=== PATIENT | female | born 1980 | race Caucasian/White ===

== ENCOUNTER 2019-09-07 07:18 | Outpatient (CLI) | payer OTHER, SELFPAY ==
[2019-09-07 07:51] LABS: Alanine Aminotransferase 38 U/L (4-35); Albumin Level 4.3 g/dL (3.5-5.1); Alkaline Phosphatase 87 U/L (38-126); Aspartate Amino Transferase 30 U/L (14-36); Bilirubin,Total 0.7 mg/dL (0.2-1.3); Blood Urea Nitrogen 15 mg/dL (7-17); Calcium 9.1 mg/dL (8.4-10.2); Carbon Dioxide 26 mmol/L (22-30); Chloride 104 mmol/L (98-107); Cholesterol 202 mg/dL (0-200); Estimated Glomerular Filt Rate > 60; Glucose 116 mg/dL (65-105); HDL Direct 54 mg/dL; Potassium 4.6 mmol/L (3.4-5.0); Sodium 135 mmol/L (137-145); Triglycerides 157 mg/dL (<150)
[2019-09-07 07:54] LABS: Hemoglobin A1C 6.2 % (<5.7)
[2019-09-07 08:02] LABS: LDL Cholesterol Direct 102 mg/dL
[2019-09-07 08:15] LABS: Basophils Absolute Auto 0.1 K/mm3 (0.0-0.1); Basophils Percent Auto 0.9 % (0.2-1.2); Eosinophils Absolute Auto 0.3 K/mm3 (0-0.3); Eosinophils Percent Auto 3.9 % (0-4.4); Hematocrit 44.1 % (37.0-47.0); Hemoglobin 14.7 g/dL (12.0-15.0); Immature Granulocyte Absolute 0.02 K/mm3 (0.00-0.031); Immature Granulocyte Percent A 0.2 % (0-0.5); Lymphocytes Absolute Auto 3.06 K/mm3 (0.9-3.2); Lymphocytes Percent Auto 35.3 % (18.3-44.2); Mean Corpuscular HGB Conc 33.3 g/dl (32-36); Mean Corpuscular Hemoglobin 27.8 pg (26-34); Mean Corpuscular Volume 83.5 fl (80-100); Mean Platelet Volume 9.3 fl (7.4-10.4); Monocytes Absolute Auto 0.7 K/mm3 (0.1-0.6); Monocytes Percent Auto 8.4 % (2.6-8.5); Neutrophils Absolute Auto 4.4 K/mm3 (1.3-6.7); Neutrophils Percent Auto 51.3 % (45.5-73.1); Platelet Count Result 340 k/mm3 (150-375); Red Blood Count 5.28 M/mm3 (4.2-5.4); White Blood Count 8.7 K/mm3 (4.5-10.0)
[2019-09-07 08:29] LABS: Add Urine Microscopic? NO; Appearance Urine Clear (Clear); Bilirubin Urine Negative (Negative); Blood Urine Negative (Negative); Color Urine Yellow (Yellow); Glucose Urine UA Negative (Negative); Ketones Urine Negative (Negative); Leukocyte Esterase Ur Negative LEU/UL (Negative); Nitrate Urine Negative (Negative); Protein Urine Negative (Negative); Specific Grav Ur 1.016 (1.001-1.035); Urobilinogen Urine Negative mg/dL (<2.0)
[2019-09-07 08:42] LABS: Free T4 Free Thyroxine 1.25 ng/mL (0.78-2.19)
== END 2019-09-07 07:19 | disposition home or self-care (01) ==
PROVIDERS: PCP Physician Assistant; Visit Provider Physician Assistant
DX: Z00.01 Encounter for general adult medical examination with abnormal findings (principal); Z13.6 Encounter for screening for cardiovascular disorders; Z13.1 Encounter for screening for diabetes mellitus
CPT/HCPCS: 36415; 80053; 80061; 81003; 83036; 84439; 84443; 85025

== ENCOUNTER 2020-02-10 16:38 | Emergency (ER) | payer OTHER, SELFPAY ==
[2020-02-10] VITALS (27 sets, daily range): BP systolic 120–147; BP diastolic 72–93; PULSE 86–97; RESP 16; TEMP 36.1–36.6; O2SAT 92–100
--- NOTE | ~2020-02-10 | XR_ITS ---
XR chest 1V portable 02/10/2020 19:04 Indication: Covid. Dyspnea. Shortness of breath. Procedure: AP portable chest Comparison: 11/05/2018 Findings: Elevated right diaphragm. There are right perihilar infiltrates. No pleural effusion or pne umothorax. No acute osseous abnormality. Impression: 1: Right perihilar infiltrates, compatible with pneumonia. Reviewed, dictated and finalized at location A. TECHNICIAN Impression: 1: Right perihilar infiltrates, compatible with pneumonia.
--- NOTE | 2020-02-10 16:42 | ECG_ITS ---
Measurements Intervals [place] Rate: 92 P: 1 WV: 169 QRS: 6 QRSD: 96 T: -1 QT: 355 QTc: 441 Interpretive Statements SINUS RHYTHM DELAYED PRECORDIAL R/S TRANSITION VOLTAGE CRITERIA FOR LVH BORDERLINE T WAVE ABNORMALITY- INFERIOR LEADS BASELINE ARTIFACT- I, III, AVL BORDERLINE ECG Electronically Signed On 02-10-2020 18:26:52 [employer] by Maico Hull D.O.
[2020-02-10 17:16] LABS: Basophils Percent Auto 0.4 % (0.2-1.2); Eosinophils Percent Auto 0.6 % (0-4.4); Hematocrit 43.7 % (37.0-47.0); Hemoglobin 14.6 g/dL (12.0-15.0); Immature Granulocyte Absolute 0.02 K/mm3 (0.00-0.031); Immature Granulocyte Percent A 0.4 % (0-0.5); Lymphocytes Absolute Auto 2.31 K/mm3 (0.9-3.2); Lymphocytes Percent Auto 49.9 % (18.3-44.2); Mean Corpuscular HGB Conc 33.4 g/dl (32-36); Mean Corpuscular Hemoglobin 26.9 pg (26-34); Mean Corpuscular Volume 80.5 fl (80-100); Mean Platelet Volume 9.2 fl (7.4-10.4); Monocytes Absolute Auto 0.7 K/mm3 (0.1-0.6); Monocytes Percent Auto 14.3 % (2.6-8.5); Neutrophils Absolute Auto 1.6 K/mm3 (1.3-6.7); Neutrophils Percent Auto 34.4 % (45.5-73.1); Platelet Count Result 256 k/mm3 (150-375); Red Blood Count 5.43 M/mm3 (4.2-5.4); Red Cell Distribution Width 13.6 % (11.5-14.5); White Blood Count 4.6 K/mm3 (4.5-10.0)
[2020-02-10 17:25] LABS: Add Urine Microscopic? YES; Appearance Urine Clear (Clear); Bacteria Urine 1+ /hpf; Bilirubin Urine Negative (Negative); Blood Urine Negative (Negative); Color Urine Yellow (Yellow); Glucose Urine UA Negative (Negative); Ketones Urine Negative (Negative); Leukocyte Esterase Ur 1+ LEU/UL (Negative); Mucus Urine Few /lpf; Nitrate Urine Negative (Negative); Protein Urine 1+ mg/dL (Negative); RBC Urine 0-2 /hpf (0-2); Squamous Epithelial Cell Urine Moderate /hpf (Few)
[2020-02-10 17:33] LABS: Alanine Aminotransferase 27 U/L (4-35); Albumin Level 3.9 g/dL (3.5-5.1); Alkaline Phosphatase 70 U/L (38-126); Anion Gap 8 mmol/L (8-16); Aspartate Amino Transferase 31 U/L (14-36); Bilirubin,Total 0.8 mg/dL (0.2-1.3); Blood Urea Nitrogen 9 mg/dL (7-17); Calcium 8.6 mg/dL (8.4-10.2); Carbon Dioxide 30 mmol/L (22-30); Chloride 101 mmol/L (98-107); Estimated CRCL calculation 125 ml/min; Estimated Glomerular Filt Rate > 60; Glucose 112 mg/dL (65-105); Lipase 75 U/L (23-300); Potassium 3.7 mmol/L (3.4-5.0); Sodium 139 mmol/L (137-145)
--- NOTE | 2020-02-10 18:10 | ED.NAVMDI ---
HPI - Nausea/Vomiting/Diarrhea General Chief complaint: Nausea/Vomiting/Diarrhea Stated complaint: multiple complaints Time Seen by Provider: 02/10/20 18:10 Source: patient Mode of arrival: ambulatory Limitations: no limitations History of Present Illness HPI Narrative: Patient is a 39-year-old female with a history of hypertension, recent Covid 19 diagnosis 01/31, who presents to the emergency department for evaluation of 3 days of inability to tolerate oral intake and recurrent nausea and diarrhea. Patient reports she has had decreased oral intake due to persistent nausea. She is not taking any antiemetic. Patient states today she was unable to tolerate her antihypertensive medications due to the nausea. She denies chest pain or current shortness of breath. She reports she has a fever blister on her lip. She denies any abdominal pain. She reports intermittent, watery diarrhea without blood or mucus. She reports intermittent fever and myalgias. She denies dysuria or hematuria. Patient has not been taking any antiemetic. 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 Related Data Home Medications Medication Instructions Recorded Confirmed aspirin [Adult Low Dose Aspirin] 81 mg PO DAILY 01/27/19 02/09/19 colchicine 0.6 mg PO DAILY 01/27/19 02/09/19 losartan 100 mg PO DAILY 01/27/19 02/09/19 metoprolol tartrate 25 mg PO DAILY 01/27/19 02/09/19 Allergies Allergy/AdvReac Type Severity Reaction Status Date / Time No Known Allergies Allergy Unverified 05/17/18 22:50 Review of Systems Review of Systems: Narrative: CONSTITUTIONAL: Reports intermittent fever and chills EYES: Denies visual changes, redness, or discharge. ENT: Denies rhinorrhea, congestion, sore throat, or otalgia. CARDIOVASCULAR: Denies chest pain, palpitations, or edema. RESPIRATORY: Denies cough or dyspnea. GASTROINTESTINAL: Denies abdominal pain, reports nausea, vomiting and diarrhea GENITOURINARY: Denies dysuria or hematuria. SKIN: Denies rash or itching. MUSCULOSKELETAL: Denies back pain, joint pain, reports myalgias NEUROLOGIC: Denies headache, numbness, or weakness. [facility] Past Medical History Medical History (Updated 02/10/20 @ 21:33 by Marielos Espana MD) HLD (hyperlipidemia) HTN (hypertension) Overactive bladder Surgical History Surgical History H/O tubal ligation Hx of cholecystectomy Family History Family History Grandparent Family history of migraine headaches Hypertension Family history of malignant neoplasm of cervix Father Patient's father is in good health Sibling Patient's sister is in good health Social History Social History Smoking status: Never smoker Alcohol intake: current Exam Narrative: Exam Narrative: GENERAL: Awake, alert, conversant HEAD: Normocephalic, atraumatic. EYES: PERRLA and EOMI. ENT: Nares clear, no rhinorrhea or epistaxis. Mucous membranes moist. Fever blister lower lip. NECK: Supple. CHEST: No respiratory distress, breathing even and non labored HEART: Regular rate, sinus rhythm ABDOMEN:Non distended, non tender EXTREMITIES: Normal range of motion. No edema. SKIN: Warm, dry, no rash. NEURO:No focal deficits. Alert and oriented x3 Course Vital Signs Vital signs: Vital Signs Temperature 36.1 C L 02/10/20 16:57 Pulse Rate 92 02/10/20 16:57 Respiratory Rate 16 02/10/20 16:57 Blood Pressure 147/88 H 02/10/20 16:57 Pulse Oximetry 97 02/10/20 16:57 Temperature 36.1 C L 02/10/20 16:57 Pulse Rate 97 02/10/20 19:15 Respiratory Rate 16 02/10/20 16:57 Blood Pressure 124/83 02/10/20 21:17 Pulse Oximetry 96 02/10/20 21:17 MDM - Nausea/Vomiting/Diarrhea MDM Narrative Medical decision making narrative: Patient presented for evaluation of recurre
[2020-02-10] MEDS: FAMOTIDINE 20 MG/2 ML VIAL IV PUSH (19:02)
[2020-02-10] MEDS: METOCLOPRAMIDE HCL INJ 10 MG/2 ML VIAL IV PUSH (19:02)
[2020-02-10] MEDS: SODIUM CHLORIDE 0.9% IV 1,000 ML 999 ML IV CONT (19:02)
--- NOTE | 2020-02-10 20:39 | PC.NURSE ---
PO challenge ordered by MD> patient given sprite. IVF continue.
--- NOTE | 2020-02-10 21:30 | PC.NURSE ---
IVF completed. patient ready for discharge. will discuss with provider.
== END 2020-02-10 21:45 | disposition home or self-care (01) ==
PROVIDERS: Emergency Medicine; Emergency Provider Emergency Medicine; PCP Physician Assistant
DX: U07.1 COVID-19 (principal); J12.89 Other viral pneumonia; E86.0 Dehydration; I10 Essential (primary) hypertension; E78.5 Hyperlipidemia, unspecified; N32.81 Overactive bladder; R94.31 Abnormal electrocardiogram [ECG] [EKG]
CPT/HCPCS: 36415; 71045; 80053; 81001; 81025; 83690; 85025; 87086; 93005; 96365; 96366; 96375; 99284; J2765; J3411; J3475; J7030; J7121

== ENCOUNTER 2020-03-07 07:04 | Outpatient (CLI) | payer OTHER, SELFPAY ==
[2020-03-07 07:33] LABS: Anion Gap 4 mmol/L (8-16); Blood Urea Nitrogen 11 mg/dL (7-17); Calcium 8.8 mg/dL (8.4-10.2); Carbon Dioxide 27 mmol/L (22-30); Chloride 106 mmol/L (98-107); Estimated Glomerular Filt Rate > 60; Glucose 111 mg/dL (65-105); Potassium 3.8 mmol/L (3.4-5.0); Sodium 137 mmol/L (137-145)
[2020-03-07 08:06] LABS: Hemoglobin A1C 5.7 % (<5.7)
== END 2020-03-07 07:05 | disposition home or self-care (01) ==
LOC: ANHLAB 07:06
PROVIDERS: PCP Physician Assistant; Visit Provider Physician Assistant
DX: R73.03 Prediabetes (principal)
CPT/HCPCS: 36415; 80048; 83036

== ENCOUNTER 2020-09-09 07:07 | Outpatient (CLI) | payer OTHER, SELFPAY ==
[2020-09-09 07:40] LABS: Basophils Absolute Auto 0.1 K/mm3 (0.0-0.1); Basophils Percent Auto 0.9 % (0.2-1.2); Eosinophils Absolute Auto 0.3 K/mm3 (0-0.3); Hemoglobin 13.8 g/dL (12.0-15.0); Immature Granulocyte Absolute 0.04 K/mm3 (0.00-0.031); Immature Granulocyte Percent A 0.4 % (0-0.5); Lymphocytes Absolute Auto 3.42 K/mm3 (0.9-3.2); Lymphocytes Percent Auto 37.5 % (18.3-44.2); Mean Corpuscular HGB Conc 32.9 g/dl (32-36); Mean Corpuscular Hemoglobin 27.4 pg (26-34); Mean Corpuscular Volume 83.5 fl (80-100); Mean Platelet Volume 8.8 fl (7.4-10.4); Monocytes Absolute Auto 0.7 K/mm3 (0.1-0.6); Monocytes Percent Auto 7.5 % (2.6-8.5); Neutrophils Absolute Auto 4.6 K/mm3 (1.3-6.7); Neutrophils Percent Auto 50.7 % (45.5-73.1); Platelet Count Result 366 k/mm3 (150-375); Red Blood Count 5.03 M/mm3 (4.2-5.4); Red Cell Distribution Width 13.2 % (11.5-14.5); White Blood Count 9.1 K/mm3 (4.5-10.0)
[2020-09-09 07:55] LABS: Alanine Aminotransferase 23 U/L (4-35); Albumin Level 4.1 g/dL (3.5-5.1); Alkaline Phosphatase 89 U/L (38-126); Anion Gap 7 mmol/L (8-16); Aspartate Amino Transferase 23 U/L (14-36); Bilirubin,Total 0.5 mg/dL (0.2-1.3); Blood Urea Nitrogen 12 mg/dL (7-17); Calcium 8.9 mg/dL (8.4-10.2); Carbon Dioxide 25 mmol/L (22-30); Chloride 107 mmol/L (98-107); Cholesterol 185 mg/dL (0-200); Estimated Glomerular Filt Rate > 60; Glucose 109 mg/dL (65-110); HDL Direct 64 mg/dL; Potassium 4.2 mmol/L (3.4-5.0); Sodium 139 mmol/L (137-145); Triglycerides 97 mg/dL (<150)
[2020-09-09 08:05] LABS: LDL Cholesterol Direct 85 mg/dL
[2020-09-09 08:05] LABS: Add Urine Microscopic? NO; Appearance Urine Clear (Clear); Bilirubin Urine Negative (Negative); Blood Urine Negative (Negative); Color Urine Yellow (Yellow); Glucose Urine UA Negative (Negative); Ketones Urine Negative (Negative); Leukocyte Esterase Ur Negative LEU/UL (Negative); Nitrate Urine Negative (Negative); Protein Urine Negative (Negative); Specific Grav Ur 1.017 (1.001-1.035); Urobilinogen Urine Negative mg/dL (<2.0)
[2020-09-09 08:31] LABS: Free T4 Free Thyroxine 1.24 ng/mL (0.78-2.19)
[2020-09-09 10:03] LABS: Hemoglobin A1C 5.7 % (<5.7)
== END 2020-09-09 07:08 | disposition home or self-care (01) ==
PROVIDERS: PCP Physician Assistant; Visit Provider Physician Assistant
DX: R73.03 Prediabetes (principal); Z00.01 Encounter for general adult medical examination with abnormal findings; Z13.6 Encounter for screening for cardiovascular disorders
CPT/HCPCS: 36415; 80053; 80061; 81003; 83036; 84439; 84443; 85025

== ENCOUNTER 2021-06-03 07:03 | Outpatient (CLI) | payer OTHER, SELFPAY ==
[2021-06-03 07:44] LABS: Anion Gap 5 mmol/L (8-16); Blood Urea Nitrogen 13 mg/dL (7-17); Calcium 8.7 mg/dL (8.4-10.2); Carbon Dioxide 26 mmol/L (22-30); Chloride 105 mmol/L (98-107); Estimated Glomerular Filt Rate > 60; Glucose 119 mg/dL (65-110); Hemoglobin A1C 5.6 % (<5.7); Potassium 4.1 mmol/L (3.4-5.0); Sodium 136 mmol/L (137-145)
== END 2021-06-03 07:04 | disposition home or self-care (01) ==
LOC: ANHLAB 07:06
PROVIDERS: PCP Physician Assistant; Visit Provider Physician Assistant
DX: R73.03 Prediabetes (principal)
CPT/HCPCS: 36415; 80048; 83036

== ENCOUNTER 2021-12-18 07:18 | Outpatient (CLI) | payer OTHER, SELFPAY ==
[2021-12-18 07:44] LABS: Appearance Urine Clear (Clear); Bilirubin Urine Negative (Negative); Blood Urine Negative (Negative); Color Urine Yellow (Yellow); Glucose Urine UA Negative (Negative); Ketones Urine Negative (Negative); Leukocyte Esterase Ur Negative LEU/UL (Negative); Nitrate Urine Negative (Negative); Protein Urine Negative (Negative); Specific Grav Ur 1.025 (1.001-1.035); Urobilinogen Urine 0.2 mg/dL (<2.0); pH Urine 6.5 (5.0-9.0)
[2021-12-18 07:47] LABS: Basophils Absolute Auto 0.1 K/mm3 (0.0-0.1); Eosinophils Absolute Auto 0.3 K/mm3 (0-0.3); Eosinophils Percent Auto 3.7 % (0-4.4); Hematocrit 42.2 % (37.0-47.0); Hemoglobin 13.8 g/dL (12.0-15.0); Immature Granulocyte Absolute 0.04 K/mm3 (0.00-0.031); Immature Granulocyte Percent A 0.5 % (0-0.5); Lymphocytes Absolute Auto 3.16 K/mm3 (0.9-3.2); Lymphocytes Percent Auto 36.3 % (18.3-44.2); Mean Corpuscular HGB Conc 32.7 g/dl (32-36); Mean Corpuscular Hemoglobin 27.9 pg (26-34); Mean Corpuscular Volume 85.4 fl (80-100); Mean Platelet Volume 8.9 fl (7.4-10.4); Monocytes Absolute Auto 0.7 K/mm3 (0.1-0.6); Monocytes Percent Auto 8.2 % (2.6-8.5); Neutrophils Absolute Auto 4.4 K/mm3 (1.3-6.7); Neutrophils Percent Auto 50.3 % (45.5-73.1); Platelet Count Result 372 k/mm3 (150-375); Red Blood Count 4.94 M/mm3 (4.2-5.4); Red Cell Distribution Width 12.9 % (11.5-14.5); White Blood Count 8.7 K/mm3 (4.5-10.0)
[2021-12-18 08:09] LABS: Mucus Urine Rare /lpf; RBC Urine 0-2 /hpf (0-2); Squamous Epithelial Cell Urine Moderate /hpf (Few); WBC Urine 0-3 /hpf
[2021-12-18 08:12] LABS: Alanine Aminotransferase 40 U/L (6-35); Albumin Level 4.4 g/dL (3.5-5.1); Alkaline Phosphatase 83 U/L (38-126); Anion Gap 9 mmol/L (8-16); Aspartate Amino Transferase 31 U/L (14-36); Bilirubin,Total 0.6 mg/dL (0.2-1.3); Blood Urea Nitrogen 16 mg/dL (7-17); Calcium 8.8 mg/dL (8.4-10.2); Carbon Dioxide 25 mmol/L (22-30); Chloride 103 mmol/L (98-107); Cholesterol 173 mg/dL (0-200); Estimated Glomerular Filt Rate > 60; Glucose 109 mg/dL (65-110); HDL Direct 47 mg/dL; Potassium 4.2 mmol/L (3.4-5.0); Sodium 137 mmol/L (137-145); Triglycerides 176 mg/dL (<150)
[2021-12-18 08:20] LABS: Add Urine Microscopic? YES
[2021-12-18 08:24] LABS: LDL Cholesterol Direct 82 mg/dL
[2021-12-18 09:16] LABS: Hemoglobin A1C 6.1 % (<5.7)
== END 2021-12-18 07:19 | disposition home or self-care (01) ==
LOC: ANHLAB 07:20
PROVIDERS: PCP Physician Assistant; Visit Provider Physician Assistant
DX: R73.03 Prediabetes (principal); Z79.899 Other long term (current) drug therapy; Z13.220 Encounter for screening for lipoid disorders
CPT/HCPCS: 36415; 80053; 80061; 81001; 83036; 84443; 85025

== ENCOUNTER 2022-06-23 06:46 | Outpatient (CLI) | payer OTHER, SELFPAY ==
[2022-06-23 07:16] LABS: Hemoglobin A1C 5.7 % (<5.7)
[2022-06-23 07:19] LABS: Alanine Aminotransferase 20 U/L (6-35); Alkaline Phosphatase 70 U/L (38-126); Anion Gap 2 mmol/L (8-16); Aspartate Amino Transferase 20 U/L (14-36); Bilirubin,Total 0.6 mg/dL (0.2-1.3); Blood Urea Nitrogen 13 mg/dL (7-17); Calcium 8.6 mg/dL (8.4-10.2); Carbon Dioxide 29 mmol/L (22-30); Chloride 105 mmol/L (98-107); Cholesterol 162 mg/dL (0-200); Estimated Glomerular Filt Rate > 60; Glucose 112 mg/dL (65-110); HDL Direct 58 mg/dL; Potassium 4.1 mmol/L (3.4-5.0); Sodium 136 mmol/L (137-145); Triglycerides 102 mg/dL (<150)
[2022-06-23 07:30] LABS: LDL Cholesterol Direct 72 mg/dL
== END 2022-06-23 06:47 | disposition home or self-care (01) ==
LOC: ANHLAB 06:48
PROVIDERS: PCP Physician Assistant; Visit Provider Physician Assistant
DX: R73.03 Prediabetes (principal); Z79.899 Other long term (current) drug therapy; Z13.220 Encounter for screening for lipoid disorders
CPT/HCPCS: 36415; 80053; 80061; 83036

== ENCOUNTER 2022-07-31 13:53 | Emergency (ER) | payer OTHER, SELFPAY ==
--- NOTE | ~2022-07-31 | CT_ITS ---
EXAMINATION: CT abdomen pelvis wo con DATE: 07/31/2022 17:38 INDICATION: Right flank pain TECHNIQUE: Computed tomography (CT) of the abdomen and pelvis was performed without intravenous contr ast. Automated exposure control and iterative reconstruction technique were employed. Exam dose: 151 3.59 mGy-cm total exam DLP. COMPARISON: 01/07/2011 CT abdomen pelvis FINDINGS: The lung bases are clear. Normal heart size. No pericardial or pleural effusion. Status post cholecystectomy. The liver, spleen, pancreas, and adrenal glands and kidneys are unremark able. No urinary tract calculus or hydroureteronephrosis. Normal caliber of the abdominal aorta. No intraperitoneal or retroperitoneal or pelvic mass lesion or adenopathy or ascites. The uterus, adnexal areas are unremarkable except for bilateral tubal ligation. The urinary bladder i s unremarkable. No bowel obstruction, bowel wall thickening, pneumatosis or intraperitoneal free air. Normal appendix . Small fat-containing umbilical hernia. No suspicious osteolytic or osteoblastic lesions. IMPRESSION: No significant abnormality Status post cholecystectomy Reviewed, dictated and finalized at [facility]. Reviewed, dictated and finalized at location A.
[2022-07-31 14:03] VITALS: BP 165/97; PULSE 100; RESP 16; TEMP 36.2; O2SAT 100
[2022-07-31 14:29] LABS: Basophils Absolute Auto 0.1 K/mm3 (0.0-0.1); Basophils Percent Auto 0.7 % (0.2-1.2); Eosinophils Absolute Auto 0.2 K/mm3 (0-0.3); Eosinophils Percent Auto 1.2 % (0-4.4); Hematocrit 44.4 % (37.0-47.0); Hemoglobin 14.3 g/dL (12.0-15.0); Immature Granulocyte Absolute 0.05 K/mm3 (0.00-0.031); Immature Granulocyte Percent A 0.3 % (0-0.5); Lymphocytes Absolute Auto 4.28 K/mm3 (0.9-3.2); Lymphocytes Percent Auto 29.3 % (18.3-44.2); Mean Corpuscular HGB Conc 32.2 g/dl (32-36); Mean Corpuscular Hemoglobin 27.8 pg (26-34); Mean Corpuscular Volume 86.2 fl (80-100); Mean Platelet Volume 8.9 fl (7.4-10.4); Monocytes Absolute Auto 1.2 K/mm3 (0.1-0.6); Neutrophils Absolute Auto 8.8 K/mm3 (1.3-6.7); Neutrophils Percent Auto 60.5 % (45.5-73.1); Platelet Count Result 386 k/mm3 (150-375); Red Blood Count 5.15 M/mm3 (4.2-5.4); Red Cell Distribution Width 13.2 % (11.5-14.5); White Blood Count 14.6 K/mm3 (4.5-10.0)
[2022-07-31 14:39] LABS: Appearance Urine Cloudy (Clear); Bacteria Urine Rare /hpf; Bilirubin Urine Negative (Negative); Blood Urine Negative (Negative); Color Urine Yellow (Yellow); Glucose Urine UA Negative (Negative); Ketones Urine Trace mg/dL (Negative); Leukocyte Esterase Ur Trace LEU/UL (Negative); Nitrate Urine Negative (Negative); Non Pathogenic Casts 0-2; Protein Urine Negative (Negative); RBC Urine 0-2 /hpf (0-2); Specific Grav Ur 1.022 (1.001-1.035); Squamous Epithelial Cell Urine Moderate /hpf (Few)
[2022-07-31 14:40] LABS: Alanine Aminotransferase 22 U/L (6-35); Albumin Level 4.4 g/dL (3.5-5.1); Alkaline Phosphatase 91 U/L (38-126); Anion Gap 5 mmol/L (8-16); Aspartate Amino Transferase 21 U/L (14-36); Bilirubin,Total 0.4 mg/dL (0.2-1.3); Blood Urea Nitrogen 12 mg/dL (7-17); Calcium 8.9 mg/dL (8.4-10.2); Carbon Dioxide 32 mmol/L (22-30); Chloride 101 mmol/L (98-107); Estimated CRCL calculation 140 ml/min; Estimated Glomerular Filt Rate > 60; Glucose 139 mg/dL (65-110); Lipase 69 U/L (23-300); Potassium 3.7 mmol/L (3.4-5.0); Sodium 138 mmol/L (137-145)
[2022-07-31 14:42] LABS: Add Urine Microscopic? YES
--- NOTE | 2022-07-31 16:25 | ED.FEMALEGU ---
HPI - Female Genitourinary General Chief complaint: Urogenital-Female Stated complaint: back pain Time Seen by Provider: 07/31/22 16:16 Source: patient Mode of arrival: ambulatory Limitations: no limitations History of Present Illness HPI Narrative: 41 years old white female presents to the ED with dull aching pain at the right flank area over the last 2 days, constant. She denies aggravating or relieving factors, she denies fever, chills, nausea, vomiting, abdominal pain or radiation of pain. Patient denies having similar symptoms. Pain is 5 out of 10, constant. 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 Patient did not take any pain medication for the last 2 days. Related Data Home Medications Medication Instructions Recorded Confirmed aspirin 81 mg tablet,delayed 81 mg PO DAILY 01/27/19 02/09/19 release (Adult Low Dose Aspirin) colchicine 0.6 mg tablet 0.6 mg PO DAILY 01/27/19 02/09/19 losartan 100 mg tablet 100 mg PO DAILY 01/27/19 02/09/19 metoprolol tartrate 25 mg tablet 25 mg PO DAILY 01/27/19 02/09/19 Allergies Allergy/AdvReac Type Severity Reaction Status Date / Time No Known Allergies Allergy Verified 07/31/22 14:05 Review of Systems Review of Systems: All systems reviewed & are unremarkable except as noted in HPI and below PMFSH Past Medical History Medical History (Updated 07/31/22 @ 18:19 by Danielle Conway MD) HLD (hyperlipidemia) HTN (hypertension) Overactive bladder Surgical History Surgical History H/O tubal ligation Hx of cholecystectomy Family History Family History Grandparent Family history of migraine headaches Hypertension Family history of malignant neoplasm of cervix Father Patient's father is in good health Sibling Patient's sister is in good health Social History Social History Smoking status: Never smoker Alcohol intake: current Exam Narrative: General appearance: Well-developed, well-nourished Skin: Normal color Head: Normocephalic, nontraumatic Eyes: Clear conjunctiva ENT: Oropharynx normal, ears normal, nose normal Neck: Supple, nontender Chest and respiratory: Airway patent, no respiratory distress, no accessory muscle use Heart: Regular rate/rhythm Abdomen: Soft, nontender, no organomegaly, quiet bowel sounds Vascular: Normal peripheral pulses, normal capillary refill. Musculoskeletal: Normal range of motion, mild tenderness and they are right flank area, and the costophrenic area., No bruises, no swelling, no rash pain got worse with right upper extremity abduction. Neurologic: Alert and oriented ?3, MANAGER MOBILE is normal as tested, no gross motor deficit Course Vital Signs Vital signs: Vital Signs Temperature 36.2 C L 07/31/22 14:03 Pulse Rate 100 07/31/22 14:03 Respiratory Rate 16 07/31/22 14:03 Blood Pressure 165/97 H 07/31/22 14:03 Pulse Oximetry 100 07/31/22 14:03 Oxygen Delivery Room Air 07/31/22 14:03 Temperature 36.2 C L 07/31/22 14:03 Pulse Rate 100 07/31/22 14:03 Respiratory Rate 16 07/31/22 14:03 Blood Pressure 165/97 H 07/31/22 14:03 Pulse Oximetry 100 07/31/22 14:03 Oxygen Delivery Room Air 07/31/22 14:03 MDM - Female Genitourinary MDM Narrative Medical decision making narrative: Patient presents with right flank dull aching pain for the last 2 days, physical examination showed slight tenderness at the right costophrenic angle, differential diagnosis include musculoskeletal, pyelonephritis, ki
[2022-07-31 18:36] VITALS: BP 140/84; PULSE 86; RESP 16; O2SAT 99
== END 2022-07-31 18:37 | disposition home or self-care (01) ==
PROVIDERS: Emergency Provider Emergency Medicine; PCP Physician Assistant
DX: R10.9 Unspecified abdominal pain (principal); E78.5 Hyperlipidemia, unspecified; I10 Essential (primary) hypertension; N32.81 Overactive bladder; Z90.49 Acquired absence of other specified parts of digestive tract; Z79.82 Long term (current) use of aspirin
CPT/HCPCS: 36415; 74176; 80053; 81001; 81025; 83690; 85025; 87086; 99284

== ENCOUNTER 2023-01-07 07:39 | Outpatient (CLI) | payer OTHER, SELFPAY ==
[2023-01-07 08:50] LABS: Alanine Aminotransferase 22 U/L (6-35); Albumin Level 4.1 g/dL (3.5-5.1); Alkaline Phosphatase 74 U/L (38-126); Anion Gap 10 mmol/L (8-16); Aspartate Amino Transferase 21 U/L (14-36); Bilirubin,Total 0.6 mg/dL (0.2-1.3); Blood Urea Nitrogen 16 mg/dL (7-17); Calcium 8.9 mg/dL (8.4-10.2); Carbon Dioxide 25 mmol/L (22-30); Chloride 106 mmol/L (98-107); Cholesterol 186 mg/dL (0-200); Estimated Glomerular Filt Rate > 60; Glucose 114 mg/dL (65-110); HDL Direct 56 mg/dL; Potassium 4.4 mmol/L (3.4-5.0); Sodium 141 mmol/L (137-145); Triglycerides 80 mg/dL (<150)
[2023-01-07 09:01] LABS: LDL Cholesterol Direct 94 mg/dL
[2023-01-07 09:08] LABS: Basophils Absolute Auto 0.1 K/mm3 (0.0-0.1); Basophils Percent Auto 0.9 % (0.2-1.2); Eosinophils Absolute Auto 0.2 K/mm3 (0-0.3); Eosinophils Percent Auto 2.2 % (0-4.4); Hematocrit 42.7 % (37.0-47.0); Hemoglobin 13.4 g/dL (12.0-15.0); Immature Granulocyte Absolute 0.03 K/mm3 (0.00-0.031); Immature Granulocyte Percent A 0.4 % (0-0.5); Lymphocytes Absolute Auto 2.84 K/mm3 (0.9-3.2); Lymphocytes Percent Auto 35.2 % (18.3-44.2); Mean Corpuscular HGB Conc 31.4 g/dl (32-36); Mean Corpuscular Volume 86.1 fl (80-100); Mean Platelet Volume 9.3 fl (7.4-10.4); Monocytes Absolute Auto 0.6 K/mm3 (0.1-0.6); Monocytes Percent Auto 7.6 % (2.6-8.5); Neutrophils Absolute Auto 4.3 K/mm3 (1.3-6.7); Neutrophils Percent Auto 53.7 % (45.5-73.1); Platelet Count Result 345 k/mm3 (150-375); Red Blood Count 4.96 M/mm3 (4.2-5.4); White Blood Count 8.1 K/mm3 (4.5-10.0)
[2023-01-07 09:13] LABS: Hemoglobin A1C 5.6 % (<5.7)
== END 2023-01-07 07:40 | disposition home or self-care (01) ==
LOC: ANHLAB 07:41
PROVIDERS: PCP Physician Assistant; Visit Provider Physician Assistant
DX: R73.03 Prediabetes (principal); Z79.899 Other long term (current) drug therapy; Z13.220 Encounter for screening for lipoid disorders
CPT/HCPCS: 36415; 80053; 80061; 83036; 84443; 85025

== ENCOUNTER 2023-01-31 07:17 | Outpatient (CLI) | payer OTHER, SELFPAY ==
--- NOTE | ~2023-01-31 | MM_ITS ---
EXAMINATION: MM screening sarah BI w timothy HISTORY: Screening TECHNIQUE: Craniocaudal and mediolateral oblique 3-D tomosynthesis images were obtained and synthetic 2-D images were generated. CAD analysis was submitted and interpreted. COMPARISON: 04/24/2015 BREAST PARENCHYMAL COMPOSITION: The breasts are almost entirely fatty. FINDINGS: There is no evidence of suspicious mass, calcification, or architectural distortion to sugg est malignancy in either breast. There has been no suspicious interval change. IMPRESSION: 1. No mammographic evidence of malignancy. 2. Recommend routine screening mammography in one year. BI-RADS Category 1: Negative Reviewed, dictated and finalized at location A. UI DESIGNER
== END 2023-01-31 07:18 | disposition home or self-care (01) ==
PROVIDERS: PCP Physician Assistant; Visit Provider Obstetrics & Gynecology
DX: Z12.31 Encounter for screening mammogram for malignant neoplasm of breast (principal)
CPT/HCPCS: 77063; 77067

== ENCOUNTER 2023-08-21 08:16 | Emergency (ER) | payer OTHER, SELFPAY ==
[2023-08-21 08:42] VITALS: BP 160/89; PULSE 107; RESP 14; TEMP 37.4; O2SAT 96
--- NOTE | 2023-08-21 08:59 | ED.URI ---
HPI - URI/Sore Throat General Chief Complaint: Upper Respiratory Infection Stated Complaint: Sore Throat,Cough,Fever History of Present Illness HPI Narrative: 42-year-old female presented for complaint of sore throat, cough, and fever. Onset 5 days. Temp up to 100. OTC cough meds not helping. states her daughter had strep throat 2 weeks ago. She denies shortness of breath, wheezing, nausea, vomiting, diarrhea or lethargy. Related Data Home Medications Medication Instructions Recorded Confirmed aspirin 81 mg tablet,delayed 81 mg PO DAILY 01/27/19 08/21/23 release (Adult Low Dose Aspirin) losartan 100 mg tablet 100 mg PO DAILY 01/27/19 08/21/23 metoprolol tartrate 25 mg tablet 25 mg PO DAILY 01/27/19 08/21/23 Allergies Allergy/AdvReac Type Severity Reaction Status Date / Time No Known Allergies Allergy Verified 08/21/23 08:54 Review of Systems Review of Systems: CONSTITUTIONAL: Denies body aches reports fever EYES: Denies visual changes, redness, or discharge. ENT: Reports sore throat Denies rhinorrhea, congestion, or otalgia. CARDIOVASCULAR: Denies chest pain, palpitations, or edema. RESPIRATORY: reports cough Denies dyspnea. GASTROINTESTINAL: Denies abdominal pain, nausea, vomiting, or diarrhea. SKIN: Denies rash, itching, or wounds. MUSCULOSKELETAL: Denies back pain, joint pain, or myalgia. NEUROLOGIC: Denies headache PMFSH Past Medical History Medical History (Updated 08/21/23 @ 09:15 by Michelle Umana APRN) HLD (hyperlipidemia) HTN (hypertension) Overactive bladder Surgical History Surgical History H/O tubal ligation Hx of cholecystectomy Family History Family History Grandparent Family history of migraine headaches Hypertension Family history of malignant neoplasm of cervix Father Patient's father is in good health Sibling Patient's sister is in good health Social History Social History Smoking status: Never smoker Alcohol intake: current Exam Narrative: GENERAL: well-appearing, no acute distress. EYES: conjunctivae clear ENT: Mucous membranes moist. TM pearly lewis with normal light reflex bilaterally; no tragal tenderness. Oropharynx not erythematous without lesions. Tonsils not enlarged and without exudate. No drooling, no hoarseness, no trismus, uvula midline. No tripod positioning, hot potato voice, or soft palate swelling. NECK: Supple. No lymphadenopathy CHEST: Clear to auscultation, breath sounds equal. No respiratory distress, speaks in full sentences. HEART: Regular rate and rhythm. No murmur heard. SKIN: Warm, dry, no rash. NEURO: Alert and oriented x3. Course Course Emergency Course: Patient is aware of diagnosis, understands and agrees to treatment plan. Anticipatory guidance given. Patient agrees to follow-up as directed and is aware of reasons to seek care at the emergency department. Portions of this record may have been created with voice recognition software Level of Care: Express Care Visit Vital Signs Vital signs: Vital Signs Temperature 99.4 F 08/21/23 08:42 Pulse Rate 107 H 08/21/23 08:42 Respiratory Rate 14 08/21/23 08:42 Blood Pressure 160/89 H 08/21/23 08:42 Pulse Oximetry 96 08/21/23 08:42 Oxygen Delivery Room Air 08/21/23 08:42 Temperature 99.4 F 08/21/23 08:42 Pulse Rate 107 H 08/21/23 08:42 Respiratory Rate 14 08/21/23 08:42 Blood Pressure 160/89 H 08/21/23 08:42 Pulse Oximetry 96 08/21/23 08:42 Oxygen Delivery Room Air 08/21/23 08:42 MDM - URI/Sore Throat MDM Narrative Medical decision making narrative: negative flu, COVID, and strep result reviewed with pt. Advise supportive treatments. Patient is appropriate for outpatient treatment and follow-up. Differential Diagnosis Differential diagnosis:
[2023-08-21 10:25] LABS: EDINFLUASCREEN Negative; EDINFLUBSCREEN Negative; EDSTREPNEGPOS1 Presumptive Negative
== END 2023-08-21 09:20 | disposition home or self-care (01) ==
PROVIDERS: Emergency Provider Nurse Practitioner Family; PCP Physician Assistant
DX: J06.9 Acute upper respiratory infection, unspecified (principal); Z20.822 Contact with and (suspected) exposure to COVID-19; E78.5 Hyperlipidemia, unspecified; I10 Essential (primary) hypertension; Z79.82 Long term (current) use of aspirin
CPT/HCPCS: 87081; 87426; 87804; 87880; 99213; G0463

== ENCOUNTER 2023-08-22 09:44 | Outpatient (CLI) | payer OTHER, SELFPAY ==
[2023-08-22 11:05] LABS: Hemoglobin A1C 5.9 % (<5.7)
== END 2023-08-22 09:45 | disposition home or self-care (01) ==
LOC: ANHLAB 09:46
PROVIDERS: PCP Physician Assistant; Visit Provider Physician Assistant
DX: Z13.1 Encounter for screening for diabetes mellitus (principal)
CPT/HCPCS: 36415; 83036

== ENCOUNTER 2023-09-15 09:07 | Outpatient (CLI) | payer OTHER, SELFPAY ==
[2023-09-15 10:16] LABS: Basophils Absolute Auto 0.1 K/mm3 (0.0-0.1); Basophils Percent Auto 1.1 % (0.2-1.2); Eosinophils Absolute Auto 0.2 K/mm3 (0-0.3); Eosinophils Percent Auto 2.9 % (0-4.4); Hematocrit 42.8 % (37.0-47.0); Hemoglobin 13.8 g/dL (12.0-15.0); Immature Granulocyte Absolute 0.02 K/mm3 (0.00-0.031); Immature Granulocyte Percent A 0.2 % (0-0.5); Lymphocytes Percent Auto 35.4 % (18.3-44.2); Mean Corpuscular HGB Conc 32.2 g/dl (32-36); Mean Corpuscular Hemoglobin 28.1 pg (26-34); Mean Corpuscular Volume 87.2 fl (80-100); Mean Platelet Volume 9.2 fl (7.4-10.4); Monocytes Absolute Auto 0.7 K/mm3 (0.1-0.6); Monocytes Percent Auto 8.4 % (2.6-8.5); Neutrophils Absolute Auto 4.3 K/mm3 (1.3-6.7); Platelet Count Result 304 k/mm3 (150-375); Red Blood Count 4.91 M/mm3 (4.2-5.4); Red Cell Distribution Width 13.8 % (11.5-14.5); White Blood Count 8.2 K/mm3 (4.5-10.0)
[2023-09-15 10:33] LABS: Alanine Aminotransferase 28 U/L (6-35); Albumin Level 4.3 g/dL (3.5-5.1); Alkaline Phosphatase 76 U/L (38-126); Anion Gap 10 mmol/L (4-12); Aspartate Amino Transferase 24 U/L (14-36); Bilirubin,Total 0.6 mg/dL (0.2-1.3); Blood Urea Nitrogen 15 mg/dL (7-17); Calcium 9.1 mg/dL (8.4-10.2); Carbon Dioxide 27 mmol/L (22-30); Chloride 100 mmol/L (98-107); Estimated Glomerular Filt Rate > 60; Glucose 99 mg/dL (65-110); Potassium 3.9 mmol/L (3.4-5.0); Sodium 137 mmol/L (137-145)
[2023-09-15 11:00] LABS: Free T4 Free Thyroxine 1.33 ng/mL (0.78-2.19)
[2023-09-15 12:03] LABS: Folic Acid > 20.0 ng/mL (2.76->20)
[2023-09-19 14:19] LABS: Insulin Level Total 16.3 uIU/mL
== END 2023-09-15 09:08 | disposition home or self-care (01) ==
PROVIDERS: PCP Physician Assistant; Visit Provider Physician Assistant
DX: Z79.899 Other long term (current) drug therapy (principal); Z68.42 Body mass index [BMI] 45.0-49.9, adult
CPT/HCPCS: 36415; 80053; 82607; 82746; 83525; 84439; 84443; 85025

== ENCOUNTER 2024-01-06 07:39 | Outpatient (CLI) | payer OTHER, SELFPAY ==
[2024-01-06 08:24] LABS: Cholesterol 186 mg/dL (0-200); HDL Direct 55 mg/dL; Triglycerides 178 mg/dL (<150)
[2024-01-06 08:35] LABS: LDL Cholesterol Direct 91 mg/dL
[2024-01-06 09:21] LABS: Hemoglobin A1C 6.1 % (<5.7)
== END 2024-01-06 07:40 | disposition home or self-care (01) ==
LOC: ANHLAB 07:41
PROVIDERS: PCP Physician Assistant; Visit Provider Physician Assistant
DX: Z13.220 Encounter for screening for lipoid disorders (principal); Z13.1 Encounter for screening for diabetes mellitus
CPT/HCPCS: 36415; 80061; 83036

== ENCOUNTER 2024-02-09 07:29 | Outpatient (CLI) | payer OTHER, SELFPAY ==
--- NOTE | ~2024-02-09 | MM_ITS ---
EXAMINATION: MM screening sarah BI w timothy HISTORY: Screening TECHNIQUE: Craniocaudal and mediolateral oblique 3-D tomosynthesis images were obtained and synthetic 2-D images were generated. CAD analysis was submitted and interpreted. COMPARISON: Comparison to multiple prior studies sequentially, with oldest reviewed study dated 05/2015. BREAST PARENCHYMAL COMPOSITION: Not dense: There are scattered areas of fibroglandular density. FINDINGS: There is no evidence of suspicious mass, calcification, or architectural distortion to sugg est malignancy in either breast. There has been no suspicious interval change. IMPRESSION: 1. No mammographic evidence of malignancy. 2. Recommend routine screening mammography in one year. BI-RADS Category 1: Negative Reviewed, dictated and finalized at location B. TENANCE SUPERVISOR 2ND SHIFT
== END 2024-02-09 07:30 | disposition home or self-care (01) ==
LOC: ANHIMG 07:31
PROVIDERS: PCP Physician Assistant; Visit Provider Obstetrics & Gynecology
DX: Z12.31 Encounter for screening mammogram for malignant neoplasm of breast (principal)
CPT/HCPCS: 77063; 77067

== ENCOUNTER 2024-08-03 07:04 | Outpatient (CLI) | payer OTHER, SELFPAY ==
--- OUTSIDE RECORDS SUMMARY | 2024-08-03 07:10 | XMS_ITS | Data Portability ---
Author Organization ROSSI MORRISDanni Moore Address [address] [facility] ROSSI Razo [address] Care Team Providers Care Interior Design Project Manager Name Role Phone XOCHILT RAMIREZ Primary Care Provider Unavailab le Assessment Encounter Date Assessment Date Assessment LastModified by Organization Details LastModified Time 08/22/2023 08/22/2023 Mammogram jan 2023, all clear. gyne dr. triplett. Up-to-date on Pap smear Eye exam and dental exam is up-to-date Not available 09/10/2023 22:13:56 02/27/2024 02/27/2024 Mammogram jan 2023, all clear. gyne dr. triplett. Up-to-date on Pap smear Eye exam and dental exam is up-to-date Not available 02/27/2024 10:43:21 Plan of Treatment Reminders Order Date Submit Date Provider Last Modified By Organization Details Last Modified Time Details Appointments ANY 15 2024 09:00A M NOE Reyna Not available Not available Not available Lab insulin, serum 2024 025 [facility], [address], [address], 07/05/2024 09:42:26 TSH + free T4, serum 2024 025 [facility], [address], [place], [address], 07/05/2024 09:42:27 HbA1c (hemoglob in A1c), blood 2024 025 [facility], [address] [place] [address], [id number], 07/05/2024 09:42:27 lipid panel, serum 2024 025 [facility], [address] [place] [address], [id number], 07/05/2024 09:42:27 CMP, serum or plasma 2024 025 [facility], [address] [place] [address], [id number], 07/05/2024 09:42:27 CBC w/ auto diff 2024 025 [facility], [address] [place] [address], [id number], 07/05/2024 09:42:27 vitamin B12 + folate, serum or blood 2024 025 [facility], [address] [place] [address], [id number], 07/05/2024 09:42:26 insulin, serum 2023 024 [facility], [address] [place] [address], [id number], 12/12/2023 17:06:03 TSH + free T4, serum 2023 024 [facility], [address] [place] [address], [id number], 09/18/2023 16:29:47 HbA1c (hemoglob in A1c), blood 2023 024 [facility], [address] [place] [address], [id number], 09/13/2023 12:50:53 lipid panel, serum [address] [facility], [address] [place] [address], [id number], 03/01/2024 16:49:25 CMP, serum or plasma 2023 024 [facility], [facility] [address], [id number], 10/09/2023 09:45:26 CBC w/ auto diff 2023 024 [facility], [facility] [address], [address], 09/18/2023 16:29:27 vitamin B12 + folate, serum or blood 2023 024 [facility], [address] [place] [address], [id number], 12/12/2023 16:46:51 Referral None recorded. Procedures None recorded. Surgeries None recorded. Imaging None recorded. Medication Orders metoprolo l succinate ER 50 mg tablet,ex tended release 24 hr 2024 025 [id number], [address], [id number], 02/27/2024 10:58:19 losartan 100 mg tablet 2024 025 [id number], [address], [id number], 02/27/2024 10:58:19 Patient TargetsNo targets recorded. Patient Instructions Encounter Date Encounter Id Patient Instructions Last Modified By Organization Details Last Modified Time 08/22/2023 [id number] A healthy lifestyle: care instructions Not available 08/22/2023 10:05:10 02/27/2024 [id number] A healthy lifestyle: care instructions Not available 02/27/2024 10:58:12 Reason for Referral None Reported. Results Created Date Observation Date Name Description Value Unit Range Abnormal Flag Note LastModifiedBy Organization Detail LastModifiedTime 02/09/20 24 02/09/2024 MAMMO , scree elli, digit al, bilat eral No observ ation record ed. [facility] [address], [place], [address], 03/17/2024 21:17:36 Result Notes None recorded. Problems Name Problem SNOMED Code Status Onset Date Resolution Date Notes Provider Name and Address Organization Details Recorded Time Benign essential hypertension 5640198 Active 2023 NOE Reyna Attn: Accountshraddha g,[address] [facility], [place], [address], [facility] 4 08:59:17 Body mass index 40+ - severely obese 816600147 Active 2023 NOE Reyna Attn: Accountin g,[address] [facility], [place], [address], [facility] 4 22:12:52 Obesity 302783756 Active 2023 NOE Reyna Attn: Accountin g,[address] [facility], [place], [address], [place] [facility] 4 22:12:53 Long-term drug therapy Active 2023 NOE Reyna Attn: Accountin g,[address] [facility], [place], [address], [place] [facility] 4 22:13:03 Prediabetes 122492459 Active 2023 NOE Reyna Attn: Mateoin g,[address] [facility], [place], [address], [place] - [facility] 4 22:13:03 Problem Notes None recorded. Procedures Surgical History Date Name Laterality Status Provider Name and Address Organization Details Recorded Time cholecystectomy completed KERWIN Tinsley - [facility] 08/22/2023 10:26:00 excision of bilateral fallopian tubes and ovaries completed KERWIN Tinsley - [facility] 08/22/2023 10:26:34 D & c after delivery completed Andree Oreilly MA [facility] 08/22/2023 10:26:39 Imaging Results None recorded. Procedure Notes None recorded. Medical Equipment None Reported. Allergies No known drug allergies Medications Name Sig Start Date Stop Date Status Note LastModified by Organization Details LastModified Time metoprolol succinate ER 50 mg tablet,exten ded release 24 hr TAKE 1 TABLET BY MOUTH EVERY DAY active Not Available Not Available No t Available losartan 100 mg tablet TAKE 1 TABLET BY MOUTH EVERY DAY active Not Available Not Available No t Available Vitals Date Recorded Heart rate Systolic blood pressure Diastolic blood pressure Systolic blood pressure Diastolic blood pressure Provider Name and Address Organization Details Last Updated DateTime 02/27/2024 81 /min 124 mm[Hg] 90 mm[Hg] 124 mm[Hg] 90 mm[Hg] NOE Reyna Attn: Brandi g,[address] [place], [address], [facility] 5 10:55:57 Date Recorded Body height Body mass index (BMI) Body weight Respiratory rate Oxygen saturation Oxygen saturation in Arterial blood by Pulse oximetry Systolic blood pressure Diastolic blood pressure Provider Name and Address Organization Details Last Updated DateTime 5 165.1 cm 44.3 kg/m2 979428. 57 g 20 /min 98 % 98 % 128 mm[Hg] 82 mm[Hg] Andree Oreilly MA [facility] 5 10:41:28 Date Recorded Systolic blood pressure Diastolic blood pressure Systolic blood pressure Diastolic blood pressure Provider Name and Address Organization Details Last Updated DateTime 08/22/2023 140 mm[Hg] 90 mm[Hg] 130 mm[Hg] 90 mm[Hg] NOE Reyna Attn: Accounting ,[address] [place], [address] , [facility] 4 10:03:17 Date Recorded Body height Body mass index (BMI) Body weight Respiratory rate Oxygen saturation Oxygen saturation in Arterial blood by Pulse oximetry Heart rate Systolic blood pressure Diastolic blood pressure Provider Name and Address Organization Details Last Updated DateTime 4 165.1 cm 47.9 kg/m2 902048. 88 g 20 /min 96 % 96 % 87 /min 148 mm[Hg] 98 mm[Hg] Andree Oreilly MA [facility] 4 09:34:37 Social History Question Answer Notes LastModified by Organizat ion Details LastModified Time Tobacco Smoking Status Never Smoker Andree Oreilly MA [facility], [place] - [facility] 08/22/2023 09:30:20 Do You Have An Advance Directive? No Information n ot available 08/22/2023 Are You Blind Or Do You Have Difficulty Seeing? No Glasses Information n ot available 08/22/2023 What Is Your Level Of Caffeine Consumption? None Information not available 08/22/2023 In The 14 Days Before Symptom Onset, Have You Had Close Contact With A Laboratory-confirm ed COVID-19 While That Case Was Ill? No Information n ot available 08/22/2023 In The 14 Days Before Symptom Onset, Have You Had Close Contact With A Person Who Is Under Investigation For COVID-19 While That Person Was Ill? No Information not available 08/22/2023 Have You Been To An Area Known To Be High Risk For COVID-19? No Information not available 08/22/2023 Are You Deaf Or Do You Have Serious Difficulty Hearing? No Information not available 08/22/2023 What Type Of Diet Are You Following? REGULAR Information n ot available 08/22/2023 Are There Any Guns Present In Your Home? No Information not available 08/22/2023 What Was The Date Of Your Most Recent Tobacco Screening? 02/27/2024 Information not available 02/27/2024 Do You Use Your Seat Belt Or Car Seat Routinely? Yes Information not available 08/22/2023 Do You Have Smoke And Carbon Monoxide Detectors In Your Home? Yes Information not available 08/22/2023 Do You Use Sunscreen Routinely? Yes Information not available 08/22/2023 Has Tobacco Cessation Counseling Been Provided? Yes Information not available 08/22/2023 On What Date Was Tobacco Cessation Counseling Provided? 02/27/2024 Information not available 02/27/2024 Sex: Female Functional Status Question Answer Note LastModified by Organizat ion Details LastModified Time Do you use any illicit or recreational drugs? No Information not available 08/22/2023 Do you or have you ever used any other forms of tobacco or nicotine? No Information not available 08/22/2023 What is your level of alcohol consumption? None Information not available 08/22/2023 Are you currently employed? Yes Information not available 08/22/2023 Are you able to care for yourself? 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 Occasional Information not available 08/22/2023 Mental Status None recorded. Family History Relationship Description Onset Age of this Age Resolved Age Notes LastModified by Organization Details LastModified Time Mother Hypertensive disorder [email or web address] Not available 2023 09:31:25 Father Hypertensive disorder [email or web address] Not available 2023 09:31:25 Father Diabetes mellitus [email or web address] Not available 2023 09:31:31 Medical History Condition Response Coronary Artery Disease N Other N Atrial Fibrillation N High Blood Pressure Y Depression N COPD N Blood Clots N Anxiety Disorder N Muscle, Joint, or Bone Problems N Acid Reflux (GERD) N Cancer N Stroke N High Cholesterol N Liver Disease N Headaches N Kidney or Bladder Problems N Thyroid Problems N GI Problems N Have you had a mammogram in the last yea r? N Skin Problems N Anemia N Heart Attack (AL) N Diabetes N Seizures/Epilepsy N Have you had a colonoscopy in the last 1 0 years? N Asthma N Allergies N Have you had a PSA blood test in the las t year? N Hepatitis N Heart Failure N Osteoporosis N Gynecological History Statement/Question Response Menses Monthly N Current Control Method Ablation Obstetrics History GPAL:G 2 P 2 0 0 2 Type Value Full Term 2 Induced 0 Spontaneous 0 Premature 0 Living 2 Total 2 Immunizations Vaccine Type Date Status Note Provider Nam e and Address Organization Details Recorded Time COVID-19, mRNA, LNP-S, PF, 100 mcg/0.5mL dose or 50 mcg/0.25mL dose 03/19/2021 completed Andree O[place], [place] [facility] 02/27/2024 10:39:28 COVID-19, mRNA, LNP-S, PF, 100 mcg/0.5mL dose or 50 mcg/0.25mL dose 05/08/2020 completed KERWIN Tins[place], [place] [facility] 02/27/2024 10:39:28 COVID-19, mRNA, LNP-S, PF, 100 mcg/0.5mL dose or 50 mcg/0.25mL dose 06/03/2020 completed KERWIN [place] [facility] 02/27/2024 10:39:28 COVID-19, mRNA, LNP-S, bivalent, PF, 30 mcg/0.3 mL dose 12/31/2021 completed KERWIN [place] [facility] 02/27/2024 10:39:28 Tdap 07/08/2013 completed KERWIN [place] [facility] 02/27/2024 10:39:28 Influenza, split virus, trivalent, PF 12/05/2023 completed KERWIN [place] [facility] 02/27/2024 10:39:28 Influenza, split virus, quadrivalent, PF 12/12/2022 completed KERWIN [place] [facility] 02/27/2024 10:39:28 Past Encounters Encounter ID Performer Location Encounter Start Date Encounter Closed Date Diagnosis/Indication Diagnosis SNOMED-CT Code Diagnosis ICD10 Code Diagnosis Note [id number] Jeovany Carlos MD [facility] - [employer] [address] [place] [address] 08/22/2023 09:17:23 08/22/2023 10:49:23 Benign essential hypertension 9185405 I10 Blood pressure is 130/90 today with metoprolol succinate ER 50 mg daily and losartan 100 mg daily. Continue medication s as directed and continue to work towards weight loss for improved hypertensi on management . Long-term drug therapy 064065809 Z79.899 cmp, cbc and b12, folate labs are due Body mass index 40+ - severely obese 705482289 Z68.42 BMI 47.9 Obesity 527892219 E66.8 discussed healthy diet, exercise, controllin g carbohydra luke and added sugars in the diet Prediabetes 872198465 R7 3.03 Patient is due for updated hemoglobin A1c. She follows dietary management to keep prediabete s in check. Cholesterol screening 27 4772753 Z13.220 Fasting lipid panel is due [id number] Jeovany Carlos MD [facility] - Alee Galloway [address] [place] [address] 02/27/2024 10:17:17 02/27/2024 11:48:40 Benign essential hypertension 0563064 I10 Blood pressure is 124/90with metoprolol succinate ER 50 mg daily and losartan 100 mg daily. Continue medication s as directed and continue to work towards weight loss for improved hypertensi on management . Refills given Prediabetes 882058285 R7 3.03 Next A1c due in June. Current A1c 6.1%. She follows dietary management to keep prediabete s in check. Long-term drug therapy 456325876 Z79.899 cmp, cbc and b12, folate labs are due in June Body mass index 40+ - severely obese 703047372 Z68.42 BMI is 44.3. Routine insulin and thyroid function testing will be ordered on next lab draw Obesity 025366816 E66.9 discussed healthy diet, exercise, controllin g carbohydra luke and added sugars in the diet Cholesterol screening 27 2586524 Z13.220 Fasting lipid panel is due in June Adult heal th examination 454253684 Z00.01 adult health exam completed Health Concerns Section Related Observation LastModified by Organization Detai ls LastModified Time None Recorded Concern Status LastModified by Organization Details LastModified Time None Recorded Advance Directives Directive N: Payers Insurance Date Sequence Insurance Name Policy Number Policy Braden Covered Member ID Braden Member ID Guarantor Name 03/18/2024 1 [employer] (PPO) [id number] Brenda Luessenheide [id number] Brenda Luessenheide Notes Date Note Type Note Provider Name and Address Organization Details Recorded Time 4 text/html HypertensionReported bypatient.Notes:stable on losartan 100mg daily and metoprolol ER 50mg daily. Adherent to daily dosing with no new complaints. Prediabetes history-patient has been keeping dietary focus lower on carbohydrates and sugars. She is due for updated labs NOE Reyna Attn: Accounting,[address] [facility], [place], [address], [facility] 09/10/2023 22:15:04 5 text/html HypertensionReported bypatient.Notes:stable on losartan 100mg daily and metoprolol ER 50mg daily. Adherent to daily dosing with no new complaints. Prediabetes history-patient has been keeping dietary focus lower on carbohydrates and sugars. 6.1% A1c on lab work in the fall NOE Reyna Attn: Accounting,[address] [facility], [place], [address], [facility] 03/17/2024 21:20:00 OBGyn Episode No OBEpisode recorded.
--- OUTSIDE RECORDS SUMMARY | 2024-08-03 07:10 | XMS_ITS | Clinical Summary ---
Author Organization [facility] [address] Address [address] [place] [address] Care Team Providers Care Pocket Closer Name Role Phone Ju Bojorquez Primary Care Pr ovider Allergies No known active allergies Medications aspirin 81 mg enteric coated tablet Take 81 mg by mouth daily Active LUTEIN-ZEAXANTHI N ORAL Take 1 tablet by mouth daily Active losartan (COZAAR) 100 mg tabletIndication s:hypertension Take 100 mg by mouth daily Active metoprolol XL (TOPROL-XL) 50 mg extended release tablet TAKE 1 TABLET BY MOUTH EVERY DAY 30 tablet 11 06/02/2020 Active Active Problems No known active problems Surgical History Surgery Date Site/Laterality Comments CHOLECYSTECTOMY 02/20/2013 - 02/19/2014 ENDOMETRIAL ABLATION W/ NOVASURE 02/20/2015 - 02/20/2016 CARDIAC CATHETERIZATION 10/21/2018 - 11/19/2018 negative for CAD Medical History Medical History Date Comments Hypertension Obesity Gallstones 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 Family History Relation Name Status Comments Father Alive Mother Alive Sister Alive Social History Tobacco Use Types Packs/Day Years Used Date Smoking Tobacco: Never Smokeless Tobacco: Never Alcohol Use Standard Drinks/Week Comments Never 0 (1 standard drink = 0.6 oz pur e alcohol) AUDIT-C Answer Date Recorded Frequency of Alcohol Consumption Never 11/29/2018 Average Number of Drinks Not on file 019 Frequency of Binge Drinking Not on file 11/20 Personal Safety Answer Date Recorded Getting School Help Needed Not on file 05/06 Comments Unknown Sex and Gender Information Value Date Recorded Sex Assigned at Not on file Legal Sex Female 8:37 AM CDT Gender Identity Not on file Sexual Orientation Not on file Obstetrics History Last Filed Vital Signs Vital Sign Reading Time Taken Comments Blood Pressure 130/84 10/21/2019 8:15 AM CDT Pulse 88 10/21/2019 8:15 AM CDT Temperature - - Respiratory Rate 16 02/18/2019 8:43 AM CLAIMS COORDINATOR Oxygen Saturation 98% 10/21/2019 8:15 AM CDT Inhaled Oxygen Concentration - - Weight 132.9 kg (293 lb) 10/21/2019 8:15 AM CDT Height 165.1 cm (5' 5) 02/18/2019 8:43 AM CLAIMS COORDINATOR Body Mass Index 48.76 02/18/2019 8:43 AM CLAIMS COORDINATOR Plan of Treatment Not on [place] [address] [facility] [place] [address] Care Teams Pocket Closer Relationship Specialty Start Date End Date Ju Bojorquez PA PCP - General Physician Repair Mechanic 11/06/18
--- OUTSIDE RECORDS SUMMARY | 2024-08-03 07:10 | XMS_ITS | Clinical Summary ---
Author Organization [facility] Address [address] [facility] [place] [address] Care Team Providers Care Vp Corporate Partnerships Name Role Phone Ju Edwards Primary Care Pr ovider Source Comments [facility],non-owned Affiliates and Associated Physician Practices is amultiple site organization consisting of ambulatory clinics and hospital sitesin [place], [place], [place] and [place]. This disclosure is being madepursuant to the Care Everywhere program and may not contain all information available regarding this patient. Last updated 17.[facility] Social History Tobacco Use Types Packs/Day Years Used Date Smoking Tobacco: Never Assessed Comments Unknown Sex and Gender Information Value Date Recorded Sex Assigned at Not on file Legal Sex Female 12:00 PM CDT Gender Identity Not on file Sexual Orientation Not on file Plan of Treatment Health Maintenance Due Date Last Done Comments LIPID TESTING 1982 MAMMOGRAM 1982 HIV SCREENING 1997 HEPATITIS C SCREENING 09/11/2000 DTAP/TDAP/TD VACCINES (1 - Tdap) 2001 HEPATITIS B VACCINE (1 of 3 - 19+ 3-dose series) 2001 COVID-19 VACCINE ( - 2023-2 5 season) 2023 DEPRESSION SCREENING 02/21/2024 INFLUENZA VACCINE (Season Ended) 2024 ZOSTER VACCINE (1 of 2) 2032 HIB VACCINE Aged Out No longer eligi ble based on patient's age to complete this topic HPV VACCINE Aged Out No longer eligi ble based on patient's age to complete this topic MENINGOCOCCAL (Group B) VACC INE SHARED DECISION-MAKING Aged Out No longer eligibl e based on patient's age to complete this topic MENINGOCOCCAL GROUPS A/C/Y/W VACCINE Aged Out No longer eligible b ased on patient's age to complete this topic PNEUMOCOCCAL VACCINE Aged Out No long er eligible based on patient's age to complete this topic Insurance [facility] Care Teams Vp Corporate Partnerships Relationship Specialty Start Date End Date Ju Edwards PA [address] [place] [id number] PCP - General Physician Bench Inspector 11/05/16
--- OUTSIDE RECORDS SUMMARY | 2024-08-03 07:10 | XMS_ITS | Data Portability ---
Author Organization [place] - [employer], Main Office Address [address] [place] [address] Assessment No assessment recorded. Plan of Treatment Reminders Order Date Submit Date Provider Last Modified By Organization Details Last Modified Time Details Appointments None recorded. Lab HbA1c (hemoglobin A1c), blood 2022 023 [facility] (Lab), [address] [place] [address], [id number], 3 15:33:59 lipid panel, serum [address] (Lab), [address] [place] [address], [id number], 4 08:08:00 CMP, serum or plasma [address] (Lab), [address] [place] [address], [id number], 4 08:07:59 CBC w/ auto diff [address] (Lab), [address], [id number], 4 08:08:00 TSH, serum or plasma [address] (Lab), [facility] [address], [id number], 4 08:08:00 Referral None recorded. Procedures None recorded. Surgeries None recorded. Imaging None recorded. Medication Orders losartan 100 mg tablet 2022 023 [facility] #[id number], [address] [facility] [address] [place] [address], [id number], 3 10:35:06 metoprolol succinate ER 50 mg tablet,exte nded release 24 hr 2022 023 [facility] #[id number], [address] [facility] [address] [place] [address], [id number], 3 10:35:02 Patient TargetsNo targets recorded. Patient InstructionsNo instructions recorded. Reason for Referral None Reported. Results Created Date Observation Date Name Description Value Unit Range Abnormal Flag Note LastModifiedBy Organization Detail LastModifiedTime 09/06/1907/31/2022 CT, abdom en + pelvi s, w/ contr ast No observ ation record ed. [address] [place] [address], [id number], 09/05/2022 17:54:14 03/17/19 24 01/31/2023 MAMMO , scree elli, digit al, bilat eral No observ ation record ed. [address] [place] [address], [id number], 03/17/2023 11:44:16 Result Notes None recorded. Problems Name Problem SNOMED Code Status Onset Date Resolution Date Notes Provider Name and Address Organization Details Recorded Time Benign essential hypertension 9780942 Active 2020 Not Available [facility] 3 06:14:22 Acute sinusitis 81741432 Active 2021 Not Available [facility] 3 06:14:22 Increased blood pressure 77299156 Active Not Available [facility] 3 06:14:22 Contact dermatitis 50847927 Active 2021 Not Available [facility] 3 06:14:22 Body mass index 40+ - severely obese 323891427 Active Not Available [facility] 3 06:14:23 Postviral cough 409440306 Active Not Available [facility] 3 06:14:23 Pain of breast 69317671 Active Not Available [facility] 3 06:14:23 Overactive urinary bladder 360749856 Active 2021 Not Available [facility] 3 06:14:23 Impaired glucose tolerance 1104659 Active 2021 Not Available [facility] 3 06:14:23 Problem Notes None recorded. Procedures Surgical History Date Name Laterality Status Provider Name and Address Organization Details Recorded Time other completed Not Available [facility] 02/2022 06:08:21 LAND TITLE EXAMINER Surgery completed Not Available [facility] 04/20/2022 06:08:21 LAND TITLE EXAMINER Surgery completed Not Available [facility] 04/20/2022 06:08:21 Imaging Results None recorded. Procedure Notes None recorded. Medical Equipment None Reported. Allergies Allergen ID Allergen Name Allergen Category Reaction Reaction Severity Criticality Documentation Date Start Date Code Code System Note Provider Name and Address Organization Details Recorded Time 12669 chlorhexi dine medicatio n rash Not available Not available 04/20/2022 2358 RxNorm CHLOR APREP Not Available [facility] 3 06:20:31 Medications Name Sig Start Date Stop Date Status Note LastModified by Organization Details LastModified Time losartan 50 mg tablet TK 1 T PO QD active Not Available Not Available No t Available promethazin e-DM 6.25 mg-15 mg/5 mL oral syrup 02/26 completed Not Available Not Available Not Available triamcinolo ne acetonide 0.5 % topical cream 07/04 completed Not Available Not Available Not Available fluconazole 150 mg tablet TAKE 1 TABLET BY MOUTH 01/09 completed Not Available Not Available Not Available benzonatate 200 mg capsule Take 1 capsule 3 times a day by oral route as needed. 06/28 completed Not Available Not Available Not Available metoprolol succinate ER 50 mg tablet,exte nded release 24 hr TAKE 1 TABLET BY MOUTH EVERY DAY 2022 active Not Available Not Available Not Avai lable hydrocodone 5 mg-acetamin ophen 325 mg tablet active Not Available Not Available No t Available Zithromax Z-Linus 250 mg tablet TAKE 2 TABLETS (500 MG) BY ORAL ROUTE ONCE DAILY FOR 1 DAY THEN 1 TABLET (250 MG) BY ORAL ROUTE ONCE DAILY FOR 4 DAYS active Not Available Not Available No t Available amlodipine 2.5 mg tablet TAKE 1 TABLET BY MOUTH EVERY DAY 11/19 completed Not Available Not Available Not Available acyclovir 400 mg tablet TAKE 1 TABLET BY MOUTH THREE TIMES DAILY active Not Available Not Available No t Available aspirin 81 mg tablet,petra yed release Take 1 tablet every day by oral route. 04/08 completed Not Available Not Available Not Available amoxicillin 875 mg tablet TK 1 T PO BID active Not Available Not Available No t Available oseltamivir 75 mg capsule TK 1 C PO BID FOR 5 DAYS 09/30 completed Not Available Not Available Not Available neomycin-po lymyxin-dex ameth 3.5 mg/mL-10,00 0 unit/mL-0.1 % eye drops active Not Available Not Available Not Available Cheratussin AC 10 mg-100 mg/5 mL oral liquid Take 10 mL every 4-6 hours by oral route as needed. 06/28 completed Not Available Not Available Not Available cefuroxime axetil 500 mg tablet TAKE 1 TABLET BY MOUTH EVERY 12 HOURS active Not Available Not Available No t Available methylpredn isolone 4 mg tablets in a dose pack 02/26 completed Not Available Not Available Not Available ondansetron 4 mg disintegrat ing tablet Place 1 tablet every 4-6 hours by transling ual route as needed. 04/08 completed Not Available Not Available Not Available losartan 100 mg tablet TAKE 1 TABLET BY MOUTH EVERY DAY 2022 active Not Available Not Available Not Avai lable metoclopram kylah 10 mg tablet TAKE 1 TABLET BY MOUTH EVERY 6 HOURS NEEDED active Not Available Not Available No t Available metoprolol tartrate 25 mg tablet Take 12.5 mg twice a day by oral route as directed for 30 days. 02/26 completed Not Available Not Available Not Available Vesicare 5 mg tablet Take 1 tablet every day by oral route. 03/04 completed Not Available Not Available Not Available Mucinex DM 60 mg-1,200 mg tablet,exte nded release 12 hr TK 1 T PO Q 12 H PRF COUGH 02/26 completed Not Available Not Available Not Available Colcrys 0.6 mg tablet Take 1 tablet twice a day by oral route. 02/26 completed Not Available Not Available Not Available lutein 25 mg-zeaxanth in 5 mg capsule Take 2 capsules every day by oral route as directed. 04/08 completed Not Available Not Available Not Available Lotemax 0.5 % eye gel drops 11/19 completed Not Available Not Available Not Available metoprolol succinate ER 50 mg capsule sprinkle, ext. release 24 hr Take 1 capsule every day by oral route. 10/01 completed Not Available Not Available Not Available Vitals Date Recorded Body mass index (BMI) Body height Heart rate Respiratory rate Body temperature Body weight Systolic blood pressure Diastolic blood pressure Systolic blood pressure Diastolic blood pressure Provider Name and Address Organization Details Last Updated DateTime 2 50.6 kg/m2 161.29 cm 85 /min 16 /min 97.7 [degF] 931575. 79 g 138 mm[Hg] 88 mm[Hg] 138 mm[Hg] 84 mm[Hg] Not Available [facility] 3 06:11:26 Date Recorded Body height Body temperature Body mass index (BMI) Body weight Respiratory rate Oxygen saturation Oxygen saturation in Arterial blood by Pulse oximetry Heart rate Systolic blood pressure Diastolic blood pressure Provider Name and Address Organization Details Last Updated DateTime 3 161.29 cm 97.8 [degF] 45.7 kg/m2 930914. 2 g 16 /min 98 % 98 % 73 /min 128 mm[Hg] 80 mm[Hg] [employer] [place] - [facility] [employer] [facility] 3 10:18:13 Date Recorded Body mass index (BMI) Body height Oxygen saturation Oxygen saturation in Arterial blood by Pulse oximetry Heart rate Body temperature Body weight Systolic blood pressure Diastolic blood pressure Provider Name and Address Organization Details Last Updated DateTime 1 48.8 kg/m2 161.29 cm 98 % 98 % 102 /min 97.3 [degF] 631317. 22 g 130 mm[Hg] 82 mm[Hg] Not Available [facility] 3 06:11:26 Date Recorded Body height Oxygen saturation Oxygen saturation in Arterial blood by Pulse oximetry Heart rate Body temperature Systolic blood pressure Diastolic blood pressure Provider Name and Address Organization Details Last Updated DateTime 2 161.29 cm 98 % 98 % 83 /min 97.8 [degF] 122 mm[Hg] 80 mm[Hg] Not Available [facility] 3 06:11:26 Date Recorded Body height Body temperature Body mass index (BMI) Body weight Respiratory rate Oxygen saturation Oxygen saturation in Arterial blood by Pulse oximetry Heart rate Systolic blood pressure Diastolic blood pressure Provider Name and Address Organization Details Last Updated DateTime 3 161.29 cm 97.3 [degF] 47.4 kg/m2 231769. 12 g 16 /min 97 % 97 % 80 /min 122 mm[Hg] 80 mm[Hg] [employer] 3 10:14:56 Social History Question Answer Notes LastModified by Organizat ion Details LastModified Time Tobacco Smoking Status Never Smoker [employer] null, [employer] 01/09/2023 10:10:00 Do You Have An Advance Directive? No [id number] Information not available 04/20/2022 If You Are , What Was Your Level Of Alcohol Consumption Prior To ? None [email or web address] Information not available 01/09/2023 Do You Wear A Helmet When Biking? Yes Information not available 01/09/2023 What Is Your Level Of Caffeine Consumption? Occasional [id number] Information not available 04/20/2022 In The 14 Days Before Symptom Onset, Have You Had Close Contact With A Laboratory-confirm ed COVID-19 While That Case Was Ill? No Information n ot available 01/09/2023 In The 14 Days Before Symptom Onset, Have You Had Close Contact With A Person Who Is Under Investigation For COVID-19 While That Person Was Ill? No [email or web address] Information not available 01/09/2023 What Type Of Diet Are You Following? REGULAR [id number] Information not available 04/20/2022 What Is The Highest Grade Or Level Of School You Have Completed Or The Highest Degree You Have Received? [id number] Information not available 01/09/2023 Have There Been Any Changes To Your Family Or Social Situation? No [email or web address] Information no t available 01/09/2023 Are There Any Guns Present In Your Home? No [email or web address] Information not available 01/09/2023 Do You Use Insect Repellent Routinely? Yes [email or web address] Information not available 01/09/2023 Do You Have A Medical Power Of Blasting Gang Miner? No [email or web address] Information not available 01/09/2023 What Is Your Relationship Status? [id number] Information not available 04/20/2022 Do You Use Your Seat Belt Or Car Seat Routinely? Yes [email or web address] Information not available 01/09/2023 Do You Have Smoke And Carbon Monoxide Detectors In Your Home? Yes [email or web address] Information not available 01/09/2023 Do You Use Sunscreen Routinely? Yes [email or web address] Information not available 01/09/2023 Has Tobacco Cessation Counseling Been Provided? No [email or web address] Information not available 01/09/2023 Have You Recently Traveled Abroad? No [email or web address] Information not available 01/09/2023 Do You Have Any Dietary Restrictions? No [email or web address] Information not available 01/09/2023 Sex: Unknown Functional Status Question Answer Note LastModified by [employer] ion Details LastModified Time Do you use any illicit or recreational drugs? No Information not available 01/09/2023 Do you or have you ever used any other forms of tobacco or nicotine? No [email or web address] Information not available 01/09/2023 What is your level of alcohol consumption? 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 Moderate [id number] Information not available 04/20/2022 Mental Status Question Answer Note LastModified by Organization D etails LastModified Time Do you feel stressed (tense, restless, nervous, or anxious, or unable to sleep at night)? [id number] [email or web address] Information not available 01/09/2023 Family History Relationship Description Onset Age of this Age Resolved Age Notes LastModified by Organization Details LastModified Time Father General health good [id number] Not available 04/20/2022 06:08:23 Mother General health good [id number] Not available 04/20/2022 06:08:23 Paternal Grandmother Malignant tumor of cervix 71 [id number] Not available 04/20/2022 06:08:23 Medical History Condition Response BREAST PROBLEMS Y HEADACHES/MIGRAINES Y URINARY/BLADDER/KIDNEY PROBLEMS Y Gynecological History Statement/Question Response Menses Monthly N Abnormal Pap N Date of Last Pap 12/21/2018 Date of Last Mammogram 04/24/2015 Current Control Method Ablation Sexually Active? Y Obstetrics History GPAL:G 2 P 0 0 0 2 Type Value Living 2 Total 2 Immunizations Vaccine Type Date Status Note Provider Nam e and Address Organization Details Recorded Time influenza, unspecified formulation 5 completed Not Available [facility] 04/20/2022 06:20:13 tetanus toxoid, unspecified formulation 0 completed Not Available [facility] 04/20/2022 06:20:13 influenza, unspecified formulation 7 completed Not Available [facility] 04/20/2022 06:20:13 Past Encounters Encounter ID Performer Location Encounter Start Date Encounter Closed Date Diagnosis/Indication Diagnosis SNOMED-CT Code Diagnosis ICD10 Code Diagnosis Note [id number] NOE Reyna [facility] [place] [address] [place] [address] 10/13/2020 00:00:00 10/18/2020 18:57:38 [id number] Jeovany Carlos MD [facility] [place] [address] [place] [address] 06/10/2021 00:00:00 06/19/2021 22:31:38 [id number] NOE Reyna [facility] Internal [facility] [place] [address] [place] [address] 01/05/2022 00:00:00 01/19/2022 01:19:06 [id number] NOE Reyna [facility] Internal [facility] [place] [address] [place] [address] 07/04/2022 09:51:29 07/04/2022 10:59:53 Benign essential hypertension 3885336 I10 stable on medication Impaired g lucose tolerance 1799735 R73.03 stable a1c. repeat in dec. Long-term drug therapy 745684926 Z79.899 next labs due in dec. Cholesterol screening 27 0812597 Z13.220 fasting lipids due in dec. [id number] NOE Reyna [facility] [place] [address] [place] [address] 01/09/2023 10:09:46 01/09/2023 10:34:33 Adult health examination 023607701 Z00.01 annual wellness completed. labs reviewed. Benign ess ential hypertension 9496930 I10 stable on medication c, refills given. Long-term drug therapy 123448397 Z79.899 Health Concerns Section Related Observation LastModified by Organization Detai ls LastModified Time None Recorded Concern Status LastModified by Organization Details LastModified Time None Recorded Advance Directives Directive N: Payers Insurance Date Sequence Insurance Name Policy Number Policy Braden Covered Member ID Braden Member ID Guarantor Name 01/16/2023 1 [facility] ([facility] [id number] Brenda Mckeon [id number] Brenda Mckeon Notes Date Note Type Note Provider Name and Address Organization Details Recorded Time 1 text/html HypertensionReported bypatient.Onset/Timing:be tter Self Care:not under emotional stress Associated Symptoms:no shortness of breath; no fatigue; no palpitations; no decline in exercise capacity; no snoring Not Available [employer] 10/18/2020 18:57:38 2 text/html HypertensionReported bypatient.Duration:has noted for years Onset/Timing:better Alleviating Factors:medication Self Care:not under emotional stress Associated Symptoms:no shortness of breath; no fatigue; no palpitations; no decline in exercise capacity; no snoring Not Available [employer] 06/19/2021 22:31:38 2 text/html HypertensionReported bypatient.Duration:has noted for years Onset/Timing:better Alleviating Factors:medication Self Care:not under emotional stress Associated Symptoms:no shortness of breath; no fatigue; no palpitations; no decline in exercise capacity; no snoring Not Available [employer] 01/19/2022 01:19:06 3 text/html HypertensionReported bypatient.Duration:has noted for years Onset/Timing:better Alleviating Factors:medication Associated Symptoms:no shortness of breath; no fatigue; no palpitations; no decline in exercise capacity; no snoring NOE Reyna [address] [facility] [address], [place], [address], [facility] [employer] 07/20/2022 23:10:41 3 text/html HypertensionReported bypatient.Duration:has noted for years Onset/Timing:better Alleviating Factors:medication Associated Symptoms:no shortness of breath; no fatigue; no palpitations; no decline in exercise capacity; no snoring Wellness NOE Reyna [address] [address], [place], [address], [facility] [employer] [facility] [employer] [facility] 01/13/2023 19:19:33 OBGyn Episode No OBEpisode recorded.
--- OUTSIDE RECORDS SUMMARY | 2024-08-03 07:11 | XMS_ITS | Referral Summary ---
Author Organization [facility] [address] Address [address] [place] [address] Care Team Providers Care Business Information Consultant Name Role Phone Ju Bojorquez Primary Care [...] Active Active Problems No known active problems Social History Tobacco Use Types Packs/Day Years [...] on file Sexual Orientation Not on file Last Filed Vital Signs Vital Sign Reading Time Taken Comments Blood Pressure 130/84 10/21/2019 8:15 AM CDT Pulse 88 10/21/2019 8:15 AM CDT Temperature - - Respiratory Rate 16 02/18/2019 8:43 AM VACCINES SOLUTIONS SPECIALIST Oxygen Saturation 98% 10/21/2019 8:15 AM CDT Inhaled Oxygen Concentration - - Weight 132.9 kg (293 lb) 10/21/2019 8:15 AM CDT Height 165.1 cm (5' 5) 02/18/2019 8:43 AM [employer]ACC[employer] SOLUTIONS SPECIALIST Body Mass Index 48.76 02/18/2019 8:43 AM VACCINES SOLUTIONS SPECIALIST Plan of Treatment Not on file Insurance [facility] [place] [id number] [facility] [id number] Care Teams Business Information Consultant Relationship Specialty Start Date End Date Ju Bojorquez PA PCP - General Physician Area Safety Manager 11/06/18
[2024-08-03 07:52] LABS: Basophils Absolute Auto 0.1 K/mm3 (0.0-0.1); Basophils Percent Auto 1.1 % (0.2-1.2); Eosinophils Absolute Auto 0.3 K/mm3 (0-0.3); Eosinophils Percent Auto 3.6 % (0-4.4); Hemoglobin 13.8 g/dL (12.0-15.0); Immature Granulocyte Absolute 0.02 K/mm3 (0.00-0.031); Immature Granulocyte Percent A 0.2 % (0-0.5); Lymphocytes Absolute Auto 3.09 K/mm3 (0.9-3.2); Lymphocytes Percent Auto 38.4 % (18.3-44.2); Mean Corpuscular HGB Conc 32.9 g/dl (32-36); Mean Corpuscular Hemoglobin 28.1 pg (26-34); Mean Corpuscular Volume 85.5 fl (80-100); Monocytes Absolute Auto 0.6 K/mm3 (0.1-0.6); Monocytes Percent Auto 7.7 % (2.6-8.5); Neutrophils Absolute Auto 3.9 K/mm3 (1.3-6.7); Platelet Count Result 340 k/mm3 (150-375); Red Blood Count 4.91 M/mm3 (4.2-5.4); Red Cell Distribution Width 12.6 % (11.5-14.5)
[2024-08-03 09:03] LABS: Alanine Aminotransferase 44 U/L (6-35); Alkaline Phosphatase 81 U/L (38-126); Anion Gap 7 mmol/L (4-12); Aspartate Amino Transferase 38 U/L (14-36); Bilirubin,Total 0.6 mg/dL (0.2-1.3); Blood Urea Nitrogen 12 mg/dL (7-17); Calcium 8.9 mg/dL (8.4-10.2); Carbon Dioxide 25 mmol/L (22-30); Chloride 105 mmol/L (98-107); Cholesterol 190 mg/dL (0-200); Estimated Glomerular Filt Rate > 60; Glucose 114 mg/dL (65-110); HDL Direct 53 mg/dL; Sodium 137 mmol/L (137-145); Total Protein 7.1 g/dL (6.3-8.2); Triglycerides 113 mg/dL (<150)
[2024-08-03 09:05] LABS: Free T4 Free Thyroxine 1.26 ng/dL (0.78-2.19)
[2024-08-03 09:14] LABS: LDL Cholesterol Direct 93 mg/dL
[2024-08-03 09:47] LABS: Hemoglobin A1C 6.1 % (<5.7)
[2024-08-03 10:11] LABS: Folic Acid > 20.0 ng/mL (2.76->20)
[2024-08-06 14:33] LABS: Insulin Level Total 22.8 uIU/mL
== END 2024-08-03 07:05 | disposition home or self-care (01) ==
LOC: ANHLAB 07:08
PROVIDERS: PCP Physician Assistant; Visit Provider Physician Assistant
DX: R73.03 Prediabetes (principal); Z68.42 Body mass index [BMI] 45.0-49.9, adult; Z79.899 Other long term (current) drug therapy; Z13.220 Encounter for screening for lipoid disorders
CPT/HCPCS: 36415; 80053; 80061; 82607; 82746; 83036; 83525; 84439; 84443; 85025

== ENCOUNTER 2024-12-29 20:00 | Emergency (ER) | payer OTHER, SELFPAY ==
--- NOTE | ~2024-12-29 | XR_ITS ---
Examination: XR chest 2V Clinical History: Chest pain Comparison: Chest x-ray 02/10/2020 Technique: PA and Lateral Findings: Cardiomediastinal silhouette normal size and configuration. Lungs clear. No acute bony abnormality. IMPRESSION: 1. No acute cardiopulmonary findings. Reviewed, dictated and finalized at location R. ERS COMPENSATION CLAIMS ANALYST
--- NOTE | 2024-12-29 20:02 | ECG_ITS ---
Test Date: 2024-12-29 20:14:47 Measurements Intervals [place] Rate: 80 P: 21 OR: 187 QRS: 25 QRSD: 93 T: 24 QT: 369 QTc: 426 Interpretive Statements SINUS RHYTHM No previous ECG available for comparison Electronically Signed On 12-30-2024 18:24:08 PAYABLE MANAGER by Malina Harper M.D.
--- OUTSIDE RECORDS SUMMARY | 2024-12-29 20:02 | XMS_ITS | Clinical Summary ---
Author Organization [facility] Address [address] [place] [address] Care Team Providers Care Orthopedic Physician Assistant Name Role Phone Ju Edwards Primary Care Pr ovider Source Comments [facility],non-owned Affiliates and Associated Physician Practices is amultiple site organization consisting of ambulatory clinics and hospital sitesin [place], [place], [place] and [place]. This disclosure is being madepursuant to the Care Everywhere program and may not contain all information available regarding this patient. Last updated 17.[facility] Social History Tobacco Use Types Packs/Day Years [...] of 3 - 19+ 3-dose series) 2001 HPV VACCINE (1 - 3-dose SCDM series) 2009 DEPRESSION SCREENING 02/21/2024 COVID-19 VACCINE (1 - 2023-2 5 season) 2024 INFLUENZA VACCINE (#1) 2024 ZOSTER VACCINE (1 of 2) 2032 [...] patient's age to complete this topic Insurance [facility] Care Teams Orthopedic Physician Assistant Relationship Specialty Start Date End Date Ju Edwards PA [address] [place] [id number] PCP - General Physician Label Printing Machinist 11/05/16
--- OUTSIDE RECORDS SUMMARY | 2024-12-29 20:03 | XMS_ITS | Data Portability ---
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 Triglycerides are 113 total cholesterol 190 LDL 93 HDL 53. Vitamin B12 and folate are normal and thyroid function testing is normal. Insulin level slightly elevated at 22.8. Not available 08/19/2024 10:03:31 Plan of Treatment Reminders Order Date Submit Date Provider Last Modified By Organization Details Last Modified Time Details Appointments ANY 15 2025 08:00A M NOE Reyna Not available Not available Not available Lab hemoglobi n A1c, QN, blood 2024 12/2 025 [facility], [address] [place] [address], [id number], 08/19/2024 10:04:01 CBC w/ auto diff [address] [facility], [address] [place] [address], [id number], 08/19/2024 10:04:01 CMP, serum or plasma [address] [facility], [address] [place] [address], [id number], 08/19/2024 10:04:01 insulin, serum [address] [facility], [address] [place] [address], [id number], 08/19/2024 10:04:01 insulin, serum 2024 025 [facility], [address] [place] [address], [id number], 11/04/2024 15:08:08 TSH + free T4, serum 2024 025 [facility], [address] [place] [address], [id number], 11/04/2024 15:08:52 HbA1c (hemoglob in A1c), blood 2024 025 [facility], [address] [place] [address], [id number], 11/04/2024 15:08:08 lipid panel, serum 2024 025 [facility], [address] [place] [address], [id number], 11/04/2024 15:08:52 CMP, serum or plasma 2024 025 [facility], [address] [place] [address], [id number], 11/04/2024 15:09:22 CBC w/ auto diff 2024 025 [facility], [address] [place] [address], [id number], 08/16/2024 12:08:41 vitamin B12 + folate, serum or blood 2024 025 [facility], [address] [place] [address], [id number], 11/04/2024 15:09:22 insulin, serum 2023 024 [facility], [address] [place] [address], [id number], 12/12/2023 17:06:03 TSH + free T4, serum 2023 024 [facility], [address] [place] [address], [id number], 09/18/2023 16:29:47 HbA1c (hemoglob in A1c), blood 2023 024 [facility], [address] [place] [address], [id number], 09/13/2023 12:50:53 lipid panel, serum [address] [facility], [address] [place] [address], [id number], 03/01/2024 16:49:25 CMP, serum or plasma [address] [facility], [address] [place] [address], [id number], 10/09/2023 09:45:26 CBC w/ auto diff 2023 024 [facility], [address] [place] [address], [id number], 09/18/2023 16:29:27 vitamin B12 + folate, serum or blood 2023 024 [facility], [address] [place] [address], [id number], 12/12/2023 16:46:51 Referral None recorded. Procedures None recorded. Surgeries None recorded. Imaging None recorded. Medication Orders losartan 100 mg tablet 2024 025 [facility] #[id number], [address], [id number], 08/19/2024 10:04:39 metoprolo l succinate ER 50 mg tablet,ex tended release 24 hr 2024 025 [facility] #[id number], [address], [id number], 08/19/2024 10:05:24 metoprolo l succinate ER 50 mg tablet,ex tended release 24 hr 2024 0[facility][id number], [address], [id number], 08/19/2024 09:48:37 losartan 100 mg tablet 2024 025 [facility] #[id number], [address], [id number], 08/19/2024 09:48:31 Patient TargetsNo targets recorded. Patient Instructions Encounter Date Encounter Id Patient Instructions Last Modified By Organization Details Last Modified Time 08/22/2023 [id number] A healthy lifestyle: care instructions Not available 08/22/2023 10:05:10 02/27/2024 [id number] A healthy lifestyle: care instructions Not available 02/27/2024 10:58:12 08/19/2024 [id number] A healthy lifestyle: care instructions Not available 08/19/2024 09:54:10 Reason for Referral None Reported. Results Created Date Observation Date Name Description Value Unit Range Abnormal Flag Note LastModifiedBy Organization Detail LastModifiedTime 02/09/20 24 02/09/2024 MAMMO , scree elli, digit al, bilat eral No observ ation record ed. [facility] [address], [place], [address], 03/17/2024 21:17:36 Result Notes None recorded. Problems Name Problem SNOMED Code Status Onset Date Resolution Date Notes Provider Name and Address Organization Details Recorded Time Benign essential hypertension 6740490 Active 2023 NOE Reyna Attn: Brandi ospina,[address] [facility], [place], [address], [place] [facility] 4 08:59:17 Body mass index 40+ - severely obese 659276165 Active 2023 NOE Reyna Attn: Brandi g,[address] [facility], [place], [address], [place] [facility] 4 22:12:52 Obesity 038368617 Active 2023 NOE Reyna Attn: Brandi g,[address] [facility], [place], [address], [place] [facility] 4 22:12:53 Long-term drug therapy Active 2023 NOE Reyna Attn: Mateoin g,[address] [facility], [place], [address], [place] [facility] 4 22:13:03 Prediabetes 239795849 Active 2023 NOE Reyna Attn: Brandi g,[address] [facility], [place], [address], [place] [facility] 4 22:13:03 Obese class III 870996298 Active 2024 NOE Reyna Attn: Brandi g,[address] [facility], [place], [address], [place] [facility] 5 09:53:34 Problem Notes None recorded. Procedures Surgical History Date Name Laterality Status Provider Name and Address Organization Details Recorded Time cholecystectomy completed Andree Oreilly MA [facility] 08/22/2023 10:26:00 excision of bilateral fallopian tubes and ovaries completed Andree Oreilly MA [facility] 08/22/2023 10:26:34 D & c after delivery completed Andree Oreilly MA [facility] 08/22/2023 10:26:39 Imaging Results None recorded. Procedure Notes None recorded. Medical Equipment None Reported. Allergies No known drug allergies Medications Name Sig Start Date Stop Date Status Note LastModified by Organization Details LastModified Time metoprolol succinate ER 50 mg tablet,exten ded release 24 hr Take 1 tablet every day by oral route. 025 active Not Available Not Available Not Avai lable losartan 100 mg tablet Take 1 tablet every day by oral route. 025 active Not Available Not Available Not Avai lable Vitals Date Recorded Heart rate Systolic And Diastolic Systolic And Diastolic Provider Name and Address Organization Details Last Updated DateTime 02/27/2024 81 /min 124/90 mm[Hg] 124/90 mm[Hg] NOE Reyna Attn: Accounting,[address] [place], [address], [facility] 02/27/2024 10:55:57 Date Recorded Body height Body mass index (BMI) Body weight Respiratory rate Oxygen saturation Oxygen saturation in Arterial blood by Pulse oximetry Systolic And Diastolic Provider Name and Address Organization Details Last Updated DateTime 165.1 cm 44.3 kg/m2 737106. 57 g 20 /min 98 % 98 % 128/82 mm[Hg] Andree Oreilly MA [facility] 10:41:28 Date Recorded Systolic And Diastolic Provider Name and Address Organization Details Last Updated DateTime 08/19/2024 138/90 mm[Hg] NOE Reyna Attn: Accounting,[address] [place], [address], [facility] 08/19/2024 10:05:21 Date Recorded Body height Body mass index (BMI) Body weight Oxygen saturation Oxygen saturation in Arterial blood by Pulse oximetry Heart rate Systolic And Diastolic Provider Name and Address Organization Details Last Updated DateTime 165.1 cm 47.1 kg/m2 894066. 64 g 97 % 97 % 86 /min 138/90 mm[Hg] Andree Oreilly MA [facility] 5 09:50:50 Date Recorded Systolic And Diastolic Systolic And Diastolic Provider Name and Address Organization Details Last Updated DateTime 08/22/2023 140/90 mm[Hg] 130/90 mm[Hg] NOE Reyna Attn: Accounting,[address] [place], [address], [facility] 08/22/2023 10:03:17 Date Recorded Body height Body mass index (BMI) Body weight Respiratory rate Oxygen saturation Oxygen saturation in Arterial blood by Pulse oximetry Heart rate Systolic And Diastolic Provider Name and Address Organization Details Last Updated DateTime 165.1 cm 47.9 kg/m2 291057. 88 g 20 /min 96 % 96 % 87 /min 148/98 mm[Hg] Andree Oreilly MA [facility] 09:34:37 Social History Question Answer Notes LastModified by Organizat ion Details LastModified Time Tobacco Smoking Status Never Smoker Andree Oreilly MA null, [facility] 08/22/2023 09:30:20 Do You Have An Advance [...] Date Of Your Most Recent Tobacco Screening? 08/19/2024 Information not available 08/19/2024 Do You Use Your Seat Belt Or Car Seat Routinely? Yes Information not available 08/22/2023 Do You Have Smoke And Carbon Monoxide Detectors In Your Home? Yes Information not available 08/22/2023 Do You Use Sunscreen Routinely? Yes Information not available 08/22/2023 Has Tobacco Cessation Counseling Been Provided? Yes Information not available 08/22/2023 On What Date Was Tobacco Cessation Counseling Provided? 08/19/2024 Information not available 08/19/2024 Sex: Female Functional Status Question Answer Note [...] 08/22/2023 Are you able to care for yourself independently? Yes Information not available 08/22/2023 What is your occupation? Or [...] Atrial Fibrillation N High Blood Pressure Y Thyroid Problems N Kidney or Bladder Problems N Depression N COPD N Blood Clots N GI Problems N Have you had a mammogram in the last yea r? N Skin Problems N Anemia N Heart Attack (HI) N Diabetes N Anxiety Disorder N Muscle, Joint, or Bone Problems N Seizures/Epilepsy N Have you had a colonoscopy in the last 1 0 years? N Acid Reflux (GERD) N Cancer N Stroke N Allergies N Asthma N Have you had a PSA blood test in the las t year? N High Cholesterol N Hepatitis N Liver Disease N Headaches N Osteoporosis N Heart Failure N Gynecological History Statement/Question Response Menses Monthly [...] dose or 50 mcg/0.25mL dose 03/19/2021 completed KERWIN [place], [place] - [facility] 02/27/2024 [...] Diagnosis SNOMED-CT Code Diagnosis ICD10 Code Diagnosis IMO Codes Diagnosis Note [id number] Jeovany Carlos MD [facility] [address] [place] [address] 08/22/2023 09:17:23 08/22/2023 10:49:23 Benign essential hypertension 7349583 I10 Blood pressure is 130/90 today with metoprolol succinate ER 50 mg daily and losartan 100 mg daily. Continue medication s as directed and continue to work towards weight loss for improved hypertensi on management . Long-term drug therapy 767549055 Z79.899 cmp, cbc and b12, folate labs are due Body mass index 40+ - severely obese 068798026 Z68.42 BMI 47.9 Obesity 141606974 E66.8 discussed healthy diet, exercise, controllin g carbohydra luke and added sugars in the diet Prediabetes 318683582 R7 3.03 Patient is due for updated hemoglobin A1c. She follows dietary management to keep prediabete s in check. Cholesterol screening 27 3090824 Z13.220 Fasting lipid panel is due [id number] Jeovany Carlos MD [facility] [address] [place] [address] 02/27/2024 10:17:17 02/27/2024 11:48:40 Benign essential hypertension 2652421 I10 Blood pressure is 124/90with metoprolol succinate ER 50 mg daily and losartan 100 mg daily. Continue medication s as directed and continue to work towards weight loss for improved hypertensi on management . Refills given Prediabetes 255143005 R7 3.03 Next A1c due in June. Current A1c 6.1%. She follows dietary management to keep prediabete s in check. Long-term drug therapy 913821436 Z79.899 cmp, cbc and b12, folate labs are due in June Body mass index 40+ - severely obese 344988995 Z68.42 BMI is 44.3. Routine insulin and thyroid function testing will be ordered on next lab draw Obesity 014367024 E66.9 discussed healthy diet, exercise, controllin g carbohydra luke and added sugars in the diet Cholesterol screening 27 8627930 Z13.220 Fasting lipid panel is due in June Adult heal th examination 044244310 Z00.01 adult health exam completed [id number] Jeovany Carlos MD [facility] Alee Galloway [address] [place] [address] 08/19/2024 09:40:25 08/19/2024 10:39:34 Obese class III 324269483 E66.813 0214311791 BMI is 47.1 Routine insulin and thyroid function testing will be ordered on next lab draw Benign ess ential hypertension 9079680 I10 Blood pressure is 130/90, but she just dosed medicines prior to coming here. Follow-up in 6 monthswith metoprolol succinate ER 50 mg daily and losartan 100 mg daily. Continue medication s as directed and continue to work towards weight loss for improved hypertensi on management . Refills given Prediabetes 994637031 R7 3.03 Current A1c 6.1%. She follows dietary management to keep prediabete s in check. Long-term drug therapy 880362782 Z79.899 Labs up-to-date and reviewed Liver enzy mes level above reference range 528351425 R74.8 [id number] Very subtle liver enzyme elevation on these current labs. Her triglyceri cleve were much better so there could still be an underlying fatty liver. We will monitor these again the bedding in January. She did not have any type of acute illness prior to labs Health Concerns Section Related Observation LastModified by Organization Detai ls LastModified Time None Recorded Concern Status LastModified by Organization Details LastModified Time None Recorded Advance Directives Directive N: Payers Insurance Date Sequence Insurance Name Policy Number Policy Braden Covered Member ID Braden Member ID Guarantor Name 08/20/2024 1 [employer] ([employer]) [id number] Brenda Mckeon [id number] Brenda Mckeon Notes Date Note Type Note Provider Name and Address Organization Details Recorded Time 4 text/html HypertensionReported by Patientstable on losartan 100mg daily and metoprolol ER 50mg daily. Adherent to daily dosing with no new complaints. Prediabetes history-patient has been keeping dietary focus lower on carbohydrates and sugars. She is due for updated labs NOE Reyna Attn: Accounting,[address], [place], [address], [facility] 09/10/2023 22:15:04 5 text/html HypertensionReported by Patientstable on losartan 100mg daily and metoprolol ER 50mg daily. Adherent to daily dosing with no new complaints. Prediabetes history-patient has been keeping dietary focus lower on carbohydrates and sugars. 6.1% A1c on lab work in the fall NOE Reyna Attn: Accounting,[address], [place], [address], [facility] 03/17/2024 21:20:00 5 text/html HypertensionReported by Patientstable on losartan 100mg daily and metoprolol ER 50mg daily. Adherent to daily dosing with no new complaints. Prediabetes history-patient has been keeping dietary focus lower on carbohydrates and sugars.CBC counts are normal, metabolic panel is stable, A1c is showing prediabetes range at 6.1% with very mild liver enzyme elevation of 38 and 44 respectively. Triglycerides are 113 total cholesterol 190 LDL 93 HDL 53. Vitamin B12 and folate are normal and thyroid function testing is normal. Insulin level slightly elevated at 22.8. NOE Reyna Attn: Accounting,[address] [facility], [place], [address], [facility] 08/19/2024 10:06:42 OBGyn Episode No OBEpisode recorded.
--- OUTSIDE RECORDS SUMMARY | 2024-12-29 20:03 | XMS_ITS | Data Portability ---
Author Organization [place] [employer], Main Office Address [address] [place] [address] Assessment No assessment recorded. Plan of Treatment Reminders Order Date Submit Date Provider Last Modified By Organization Details Last Modified Time Details Appointments None recorded. Lab HbA1c (hemoglobin A1c), blood 2022 023 [facility] (Lab), [address] [place] [address], [id number], 3 15:33:59 lipid panel, serum [address] (Lab), [facility] [address], [address], 4 08:08:00 CMP, serum or plasma [address] (Lab), [facility] [address], [address], 4 08:07:59 CBC w/ auto diff [address] (Lab), [address], [address], 4 08:08:00 TSH, serum or plasma [address] (Lab), [facility] [address], [address], 4 08:08:00 Referral None recorded. Procedures None recorded. Surgeries None recorded. Imaging None recorded. Medication Orders losartan 100 mg tablet 2022 023 [facility] #[id number], [address] [place] [address], [id number], 3 10:35:06 metoprolol succinate ER 50 mg tablet,exte nded release 24 hr 2022 023 [facility] #[id number], [address] [facility] [address] [place] [address], [id number], 3 10:35:02 Patient TargetsNo targets recorded. Patient InstructionsNo instructions recorded. Reason for Referral None Reported. Results Created Date Observation Date Name Description Value Unit Range Abnormal Flag Note LastModifiedBy Organization Detail LastModifiedTime 09/06/1907/31/2022 CT, abdom en + pelvi s, w/ contr ast No observ ation record ed. [address] [facility], [place], [address], 09/05/2022 17:54:14 03/17/19 24 01/31/2023 MAMMO , scree elli, digit al, bilat eral No observ ation record ed. [address] [facility], [place], [address], 03/17/2023 11:44:16 Result Notes None recorded. Problems Name Problem SNOMED Code Status Onset Date Resolution Date Notes Provider Name and Address Organization Details Recorded Time Blood pressure above reference range 15281692 Active Not Available [facility] 3 06:14:22 Body mass index 40+ - severely obese 031479638 Active Not Available [facility] 3 06:14:23 Postviral cough 115289121 Active Not Available [facility] 3 06:14:23 Pain of breast 13037709 Active Not Available [facility] 3 06:14:23 Benign essential hypertension 2962710 Active 2020 Not Available [facility] 3 06:14:22 Acute sinusitis 82353384 Active 2021 Not Available [facility] 3 06:14:22 Overactive urinary bladder 083121866 Active 2021 Not Available [facility] 3 06:14:23 Impaired glucose tolerance 8091043 Active 2021 Not Available [facility] 3 06:14:23 Contact dermatitis 45553618 Active 2021 Not Available [facility] 3 06:14:22 Problem Notes None recorded. Procedures Surgical History Date Name Laterality Status Provider Name and Address Organization Details Recorded Time other completed Not Available [facility] 02/2022 06:08:21 [employer] Surgery completed Not Available [facility] 04/20/2022 06:08:21 [employer] TE[employer] Surgery completed Not Available [facility] 04/20/2022 06:08:21 Imaging Results None recorded. Procedure Notes None recorded. Medical Equipment None Reported. Allergies Allergen ID Allergen Name Allergen Category Reaction Reaction Severity Criticality Documentation Date Start Date Code Code System Note Provider Name and Address Organization Details Recorded Time 20099 chlorhexi dine medicatio n rash Not available Not available 04/20/2022 2358 RxNorm CHLOR APREP Not Available [facility] 3 06:20:31 Medications Name Sig Start Date [...] Respiratory rate Body temperature Body weight Systolic And Diastolic Systolic And Diastolic Provider Name and Address Organization Details Last Updated DateTime 2 50.6 kg/m2 161.29 cm 85 /min 16 /min 97.7 [degF] 042721. 79 g 138/88 mm[Hg] 138/84 mm[Hg] Not Available [facility] 3 06:11:26 Date Recorded Body height Body temperature Body mass index (BMI) Body weight Respiratory rate Oxygen saturation Oxygen saturation in Arterial blood by Pulse oximetry Heart rate Systolic And Diastolic Provider Name and Address Organization Details Last Updated DateTime 3 161.29 cm 97.8 [degF] 45.7 kg/m2 279417. 2 g 16 /min 98 % 98 % 73 /min 128/80 mm[Hg] [facility] [place] [facility] 3 10:18:13 Date Recorded Body mass index (BMI) Body height Oxygen saturation Oxygen saturation in Arterial blood by Pulse oximetry Heart rate Body temperature Body weight Systolic And Diastolic Provider Name and Address Organization Details Last Updated DateTime 1 48.8 kg/m2 161.29 cm 98 % 98 % 102 /min 97.3 [degF] 209793. 22 g 130/82 mm[Hg] Not Available [facility] 3 06:11:26 Date Recorded Body height Oxygen saturation Oxygen saturation in Arterial blood by Pulse oximetry Heart rate Body temperature Systolic And Diastolic Provider Name and Address Organization Details Last Updated DateTime 2 161.29 cm 98 % 98 % 83 /min 97.8 [degF] 122/80 mm[Hg] Not Available [facility] 3 06:11:26 Date Recorded Body height Body temperature Body mass index (BMI) Body weight Respiratory rate Oxygen saturation Oxygen saturation in Arterial blood by Pulse oximetry Heart rate Systolic And Diastolic Provider Name and Address Organization Details Last Updated DateTime 3 161.29 cm 97.3 [degF] 47.4 kg/m2 487413. 12 g 16 /min 97 % 97 % 80 /min 122/80 mm[Hg] [facility] [employer] 3 10:14:56 Social History Question Answer Notes LastModified by Organizat ion Details LastModified Time Tobacco Smoking Status Never Smoker [facility] 01/09/2023 10:10:00 Do You Have An Advance Directive? No [id number] Information not available 04/20/2022 If You Are , What Was Your Level Of Alcohol Consumption Prior To ? None [email or web address] Information not available 01/09/2023 Do You Wear A Helmet When Biking? Yes [email or web address] Information not available 01/09/2023 What Is Your Level Of Caffeine Consumption? Occasional [id number] Information not available 04/20/2022 In The 14 Days Before Symptom Onset, Have You Had Close Contact With A Laboratory-confirm ed COVID-19 While That Case Was Ill? No [email or web address] Information n ot available 01/09/2023 In The 14 Days Before Symptom Onset, Have You Had Close Contact With A Person Who Is Under Investigation For COVID-19 While That Person Was Ill? No [email or web address] Information not available 01/09/2023 What Type Of Diet Are You Following? REGULAR [id number] Information not available 04/20/2022 What Is The Highest Grade Or Level Of School You Have Completed Or The Highest Degree You Have Received? [id number] [email or web address] Information not available 01/09/2023 Have There Been Any Changes To Your Family Or Social Situation? No [email or web address] Information no t available 01/09/2023 Are There Any Guns Present In Your Home? No [email or web address] Information not available 01/09/2023 Do You Use Insect Repellent Routinely? Yes [email or web address] Information not available 01/09/2023 Do You Have A Medical Power Of Silk Screen Operator? No [email or web address] Information not available 01/09/2023 What Is Your Relationship Status? [id number] Information not available 04/20/2022 Do You Use Your Seat Belt Or Car Seat Routinely? Yes [email or web address] Information not available 01/09/2023 Do You Have Smoke And Carbon Monoxide Detectors In Your Home? Yes [email or web address] Information not available 01/09/2023 Do You Use Sunscreen Routinely? Yes [email or web address] Information not available 01/09/2023 Has Tobacco Cessation Counseling Been Provided? No Information not available 01/09/2023 Have You Recently Traveled Abroad? No [email or web address] Information not available 01/09/2023 Do You Have Any Dietary Restrictions? No Information not available 01/09/2023 Sex: Unknown Functional Status Question Answer Note LastModified by Organizat ion Details LastModified Time Do you use any illicit or recreational drugs? No [email or web address] Information not available 01/09/2023 Do you or have you ever used any other forms of tobacco or nicotine? No [email or web address] Information not available 01/09/2023 What is your level of alcohol consumption? None [id number] Information not available 04/20/2022 What is your occupation? [employer] [email or web address] Information not available 01/09/2023 What is your exercise level? Moderate [id number] Information not available 04/20/2022 Mental Status Question Answer Note LastModified by Organization D etails LastModified Time Do you feel stressed (tense, restless, nervous, or anxious, or unable to sleep at night)? [id number] [email or web address] Information not available 01/09/2023 Family History Relationship Description Onset Age of this Age Resolved Age Notes LastModified by Organization Details LastModified Time Father General health good [id number] Not available 04/20/2022 06:08:23 Mother General health good [id number] Not available 04/20/2022 06:08:23 Paternal Grandmother Malignant neoplasm of cervix uteri 71 [id number] Not available 04/20/2022 06:08:23 Medical History Condition Response URINARY/BLADDER/KIDNEY PROBLEMS Y BREAST PROBLEMS Y HEADACHES/MIGRAINES Y Gynecological History Statement/Question Response Menses Monthly [...] influenza, unspecified formulation 5 completed Not Available [facility] 04/20/2022 06:20:13 tetanus toxoid, unspecified formulation 0 completed Not Available [facility] 04/20/2022 06:20:13 influenza, unspecified formulation 7 completed Not Available [facility] 04/20/2022 06:20:13 Past Encounters Encounter ID Performer Location Encounter Start Date Encounter Closed Date Diagnosis/Indication Diagnosis SNOMED-CT Code Diagnosis ICD10 Code Diagnosis IMO Codes Diagnosis Note [id number] NOE Reyna [facility] [place] [address] [place] [address] 10/13/2020 00:00:00 10/18/2020 18:57:38 [id number] Jeovany Carlos MD [facility] [place] [address] [place] [address] 06/10/2021 00:00:00 06/19/2021 22:31:38 [id number] NOE Reyna [facility] [place] [address] [place] [address] 01/05/2022 00:00:00 01/19/2022 01:19:06 [id number] NOE Reyna [facility] [place] [address] [place] [address] 07/04/2022 09:51:29 07/04/2022 10:59:53 Benign essential hypertension 7014191 I10 stable on medication Impaired g lucose tolerance 0822468 R73.03 stable a1c. repeat in dec. Long-term drug therapy 716397520 Z79.899 next labs due in nov. Cholesterol screening 27 3178453 Z13.220 fasting lipids due in [id number] NOE Reyna [facility] [place] [address] [place] [address] 01/09/2023 10:09:46 01/09/2023 10:34:33 Adult health examination 221213762 Z00.01 annual wellness completed. labs reviewed. Benign ess ential hypertension 8962761 I10 stable on medication c, refills given. Long-term drug therapy 632480874 Z79.899 Health Concerns Section Related Observation LastModified by Organization Detai ls LastModified Time None Recorded Concern Status LastModified by Organization Details LastModified Time None Recorded Advance Directives Directive N: Payers Insurance Date Sequence Insurance Name Policy Number Policy Braden Covered Member ID Braden Member ID Guarantor Name 01/16/2023 1 [facility] [id number] Brenda Carlsoncritical access hospitallizette [id number] Brenda Mckeon Notes Date Note Type Note Provider Name and Address Organization Details Recorded Time 3 text/html HypertensionReported by PatientHPIFor duration, patient reportshas noted for years. For onset/timing, patient reportsbetter. For alleviating factors, patient reportsmedication. For associated symptoms, patient reportsno shortness of breath,no fatigue,no palpitations,no decline in exercise capacity, andno snoring. NOE Reyna [address], [place], [address], [employer] 07/20/2022 23:10:41 3 text/html HypertensionReported by PatientHPIFor duration, patient reportshas noted for years. For onset/timing, patient reportsbetter. For alleviating factors, patient reportsmedication. For associated symptoms, patient reportsno shortness of breath,no fatigue,no palpitations,no decline in exercise capacity, andno snoring. Wellness NOE Reyna [address], [place], [address], [employer] 01/13/2023 19:19:33 OBGyn Episode No OBEpisode recorded.
--- OUTSIDE RECORDS SUMMARY | 2024-12-29 20:03 | XMS_ITS | Clinical Summary ---
Author Organization [facility] [place] [place] [address] Address [address] [place] [address] Care Team Providers Care Train Station Agent Name Role Phone Ju Bojorquez Primary Care [...] - Respiratory Rate 16 02/18/2019 8:43 AM GROUP THERAPIST Oxygen Saturation 98% 10/21/2019 8:15 AM CDT Inhaled Oxygen Concentration - - Weight 132.9 kg (293 lb) 10/21/2019 8:15 AM CDT Height 165.1 cm (5' 5) 02/18/2019 8:43 AM GROUP THERAPIST Body Mass Index 48.76 02/18/2019 8:43 AM GROUP THERAPIST Plan of Treatment [place] [address] [facility] [place] [place] [address] Care Teams Train Station Agent Relationship Specialty Start Date End Date Ju Bojorquez PA PCP - General Physician Section Leader Screen Printing 11/06/18
[2024-12-29 20:23] VITALS: BP 142/86; PULSE 80; RESP 16; O2SAT 100
--- OUTSIDE RECORDS SUMMARY | 2024-12-29 20:25 | XMS_ITS | Clinical Summary ---
Author Organization [facility] Address [address] [facility] [place] [address] Care Team Providers Care Oyster Picker Name Role Phone Ju Edwards Primary Care Pr ovider Source Comments [facility],non-owned Affiliates and Associated Physician Practices is amultiple site organization consisting of ambulatory clinics and hospital sitesin [place], [place], [place] and [place]. This disclosure is being madepursuant to the Care Everywhere program and may not contain all information available regarding this patient. Last updated 17.[facility] Social History Tobacco Use Types Packs/Day Years [...] patient's age to complete this topic Insurance [facility] Care Teams Oyster Picker Relationship Specialty Start Date End Date Ju Edwards PA [address] [place] [id number] PCP - General Physician Letter Sorting Machine Operator 11/05/16
--- OUTSIDE RECORDS SUMMARY | 2024-12-29 20:26 | XMS_ITS | Clinical Summary ---
Author Organization [facility] [place] [address] Address [address] [place] [address] Care Team Providers Care Group Captain Name Role Phone Ju Bojorquez Primary Care [...] - Respiratory Rate 16 02/18/2019 8:43 AM VENDER Oxygen Saturation 98% 10/21/2019 8:15 AM CDT Inhaled Oxygen Concentration - - Weight 132.9 kg (293 lb) 10/21/2019 8:15 AM CDT Height 165.1 cm (5' 5) 02/18/2019 8:43 AM VENDER Body Mass Index 48.76 02/18/2019 8:43 AM VENDER Plan of Treatment [place] [address] [facility] [address] Care Teams Group Captain Relationship Specialty Start Date End Date Ju Bojorquez PA PCP - General Physician Auto Washer 11/06/18
[2024-12-29 20:27] LABS: Hematocrit 42.4 % (37.0-47.0); Hemoglobin 14.0 g/dL (12.0-15.0); Immature Granulocyte Percent A 0.2 % (0-0.5); Lymphocytes Absolute Auto 4.45 K/mm3 (0.9-3.2); Mean Corpuscular HGB Conc 33.0 g/dl (32-36); Mean Corpuscular Hemoglobin 27.9 pg (26-34); Mean Corpuscular Volume 84.6 fl (80-100); Nucleated Red Blood Cells Absolute Auto 0.000 K/mm3 (0.0-0.012); Nucleated Red Blood Cells Perc 0.0 % (0.0-0.2); Platelet Count Result 322 k/mm3 (150-375); Red Blood Count 5.01 M/mm3 (4.2-5.4); White Blood Count 10.7 K/mm3 (4.5-10.0)
[2024-12-29 20:38] LABS: INR 0.9; Prothrombin Time 12.7 Seconds (11.1-14.7)
[2024-12-29 20:39] LABS: Partial Thromboplastin Time 28.0 Seconds (22.3-36.8)
[2024-12-29 20:41] LABS: Alanine Aminotransferase 51 U/L (6-35); Albumin Level 4.2 g/dL (3.5-5.1); Alkaline Phosphatase 94 U/L (38-126); Anion Gap 7 mmol/L (4-12); Aspartate Amino Transferase 33 U/L (14-36); Bilirubin,Total 0.4 mg/dL (0.2-1.3); Blood Urea Nitrogen 8 mg/dL (7-17); Calcium 8.9 mg/dL (8.4-10.2); Carbon Dioxide 27 mmol/L (22-30); Chloride 104 mmol/L (98-107); Estimated Glomerular Filt Rate > 60; Glucose 118 mg/dL (65-110); Lipase 85 U/L (23-300); Potassium 4.0 mmol/L (3.4-5.0); Sodium 138 mmol/L (137-145); Total Protein 7.3 g/dL (6.3-8.2)
[2024-12-29 20:52] LABS: Troponin I < 0.012 ng/mL (0.000-0.034)
--- NOTE | 2024-12-29 20:53 | ED_ITS ---
HPI - Chest Pain General Chief Complaint: Chest Pain Stated Complaint: Chest pain Time Seen by Provider: 12/29/24 20:04 Source: patient Mode of arrival: ambulatory Limitations: no limitations History of Present Illness HPI narrative: This is a 44-year-old female with history of hypertension who presents the ED for left-sided chest pain. Patient states that a few hours ago, she had onset of left-sided chest pain with in the left axilla that radiates down to the left lower chest. Denies fevers, chills, shortness of breath. No known sick contacts. Related Data Home Medications ?Medication ?Instructions ?Recorded ?Confirmed ?Last Taken ?Type aspirin 81 mg tablet,delayed 81 mg PO DAILY 01/27/19 0 08/21/23 Unknown History release (Adult Low Dose Aspirin) losartan 100 mg tablet 100 mg PO DAILY 01/27/1903/15 Unknown History metoprolol tartrate 25 mg tablet 25 mg PO DAILY 08/21/23 Unknown History Allergies Allergy/AdvReac Type Severity Reaction Status Date / Time No Known Allergies Allergy Verified 12/29/24 20:01 Review of Systems 2 Review of Systems: Gen.: Denies fevers or chills Eyes: Denies eye pain or visual change ENT: Denies congestion Respiratory: Denies shortness of breath or cough CV: As per HPI GI: Denies abdominal pain nausea, emesis or diarrhea denies burning, urgency, frequency or hematuria Musculoskeletal: Denies back pain or muscle pain Neuro: Denies numbness, tingling, weakness or focal weakness Skin: Denies rash Except as documented, all other systems reviewed and negative [facility] Past Medical History Medical History (Updated 12/29/24 @ 21:28 by Tim Osorio DO) Overactive bladder HLD (hyperlipidemia) HTN (hypertension) Surgical History Surgical History Hx of cholecystectomy H/O tubal ligation Family History Family History Grandparent Family history of migraine headaches Hypertension Family history of malignant neoplasm of cervix Father Patient's father is in good health Sibling Patient's sister is in good health Social History Social History Alcohol intake: current Exam 2 Narrative: APPEARANCE: No acute distress, nontoxic, resting in bed EYES: EOMI HEENT: Normocephalic, atraumatic, OMM RESPIRATORY: No respiratory distress Clear to auscultation bilaterally with no rhonchi wheezing or rales. CARDIOVASCULAR: Regular rate and rhythm without murmurs rubs or gallops. ABDOMINAL: Soft, nontender, nondistended, no rebound or guarding MUSCULOSKELETAl: Moves all extremities. No clubbing, cyanosis or edema. NEURO: Awake and alert. Following commands, speech normal, no focal deficits SKIN:: Warm, dry. No rashes lesions or abrasions PSYCHIATRIC: Normal affect/mood, Course Vital Signs Vital signs: Vital Signs Pulse Rate 80 12/29/24 20:23 Respiratory Rate 16 12/29/24 20:23 Blood Pressure 142/86 H 12/29/24 20:23 Pulse Oximetry 100 12/29/24 20:23 Oxygen Delivery Room Air 12/29/24 20:23 Pulse Rate 80 12/29/24 20:23 Respiratory Rate 16 12/29/24 20:23 Blood Pressure 142/86 H 12/29/24 20:23 Pulse Oximetry 100 12/29/24 20:23 Oxygen Delivery Room Air 12/29/24 20:23 MDM - Chest Pain MDM Narrative Medical decision making narrative: 44-year-old female Presenting for chest pain. On initial evaluation patient was in no acute distress afebrile, hemodynamic stable. Differentials include but are not limited to: ACS, PE, PNA, bronchitis, costochondritis, pleurisy, viral syndrome, GERD Notable exam findings: Chest wall nontender. Heart and lungs clear. Abdomen soft nontender. Notable lab findings: Mild leukocytosis at 10.7. CMP without significant abnormality. Troponin negative. Notable imaging findings: Chest x-ray showed no acute process. EKG without concerning findings. Patient's EKGs and labs are without significant high risk changes. Cardiac risk factors reviewed. Patient is felt likely low risk for ACS and reasonable for further risk stratification testing as an outpatient. Pain was not sudden or maximal in onset without tearing or ripping quality. No other signs of symptoms suggest aortic dissection. A low-risk Wells criteria is noted, PE is felt to be unlikely. No pneumonia seen on evaluation today. Patient is felt to be a reasonable candidate for continued evaluation as an outpatient Patient was deemed appropriate for discharge at this time. Patient was advised follow-up with their PCP in the next week for re-evaluation. Patient was agreeable to this plan. Given strict return precautions. Medical Records Data Attestation: I reviewed the patient's medical records. Lab Data Attestation: I reviewed the patient's lab results. 12/29/24 20:19 12/29/24 20:19 Labs: Lab Results 12/29/24 Range/Units 20:19 WBC 10.7 H (4.5-10.0) K/mm3 RBC 5.01 (4.2-5.4) M/mm3 Hgb 14.0 (12.0-15.0) g/dL Hct 42.4 (37.0-47.0) % MCV 84.6 (80-100) fl MCH 27.9 (26-34) pg MCHC 33.0 (32-36) g/dl RDW 12.8 (11.5-14.5) % Plt Count 322 (150-375) k/mm3 MPV 8.8 (7.4-10.4) fl Immature Gran % (Auto) 0.2 (0-0.5) % Neut % (Auto) 46.5 (45.5-73.1) % Lymph % (Auto) 41.7 (18.3-44.2) % [place] % (Auto) 8.0 (2.6-8.5) % Eos % (Auto) 2.8 (0-4.4) % Baso % (Auto) 0.8 (0.2-1.2) % Lymph # (Auto) 4.45 H (0.9-3.2) K/mm3 [place] # (Auto) 0.9 H (0.1-0.6) K/mm3 Eos # (Auto) 0.3 (0-0.3) K/mm3 Baso # (Auto) 0.1 (0.0-0.1) K/mm3 Abs Immat Gran (auto) 0.02 (0.00-0.031) K/mm3 Absolute Neuts (auto) 5.0 (1.3-6.7) K/mm3 Absolute Nucleated RBC 0.000 (0.0-0.012) K/mm3 Nucleated RBC % 0.0 (0.0-0.2) % PT 12.7 (11.1-14.7) Seconds INR 0.9 APTT 28.0 (22.3-36.8) Seconds Sodium 138 (137-145) mmol/L Potassium 4.0 (3.4-5.0) mmol/L Chloride 104 (98-107) mmol/L Carbon Dioxide 27 (22-30) mmol/L Anion Gap 7 (4-12) mmol/L BUN 8 (7-17) mg/dL Creatinine 0.61 L (0.7-1.0) mg/dL Estim Creat Clear Calc Not Reportable Estimated GFR > 60 (59 - ) Glucose 118 H (65-110) mg/dL Calcium 8.9 (8.4-10.2) mg/dL Total Bilirubin 0.4 (0.2-1.3) mg/dL AST 33 (14-36) U/L ALT 51 H (6-35) U/L Alkaline Phosphatase 94 (38-126) U/L Troponin I < 0.012 (0.000-0.034) ng/mL Total Protein 7.3 (6.3-8.2) g/dL Albumin 4.2 (3.5-5.1) g/dL Lipase 85 (23-300) U/L Imaging Data Attestation: I personally reviewed and interpreted this imaging study as follows: My impression: Chest x-ray: Normal cardiac silhouette, no consolidations, no pleural effusions, no pulmonary vascular congestion ECG Data EKG #1: Attestation: I personally reviewed and interpreted this ECG as follows: ECG completion date: 12/29/24 ECG completion time: 20:14 Interpretation: Normal sinus rhythm rate of 80, normal axis normal intervals, no acute ST or T- wave changes Discharge Plan Discharge Clinical Impression: Chest pain Qualifiers: Chest pain type: intercostal pain Qualified Code(s): R07.82 - Intercostal pain Patient Disposition: Home Condition: Stable Instructions: Antibiotic Form, Chest Wall Pain (ED) Additional Instructions: Lab work and imaging showed no evidence of cardiac damage at this time. Follow up with your PCP in the next week for reevaluation. Return to the ED for new or worsening symptoms. For pain, discomfort or temperature greater than or equal to 100.8 ?F please alternate the following 2 medications as needed. First medication- acetaminophen/Tylenol- 1000mg every 6-8 hours as needed for above indications. Second medication- ibuprofen/Motrin-600mg every 6-8 hours as needed for above indication. Patient Language: Estonian Prescriptions: No Action aspirin [Adult Low Dose Aspirin] 81 mg Tablet,Delayed Release (Dr/Ec) 81 mg PO DAILY losartan 100 mg tablet 100 mg PO DAILY metoprolol tartrate 25 mg tablet 25 mg PO DAILY Follow-up/Referrals: [place],RYAN Dodd [Primary Care Provider, Unknown]
[2024-12-29] MEDS: KETOROLAC 30 MG/ML VIAL (*BKC) IV PUSH (21:42)
== END 2024-12-29 21:45 | disposition home or self-care (01) ==
PROVIDERS: Emergency Provider Student in an Organized Health Care Education/Training Program; PCP Physician Assistant
DX: R07.82 Intercostal pain (principal); I10 Essential (primary) hypertension; E78.5 Hyperlipidemia, unspecified
CPT/HCPCS: 36415; 71046; 80053; 83690; 84484; 85025; 85610; 85730; 93005; 96374; 99284; J1885

== ENCOUNTER 2025-02-03 08:04 | Outpatient (CLI) | payer OTHER, SELFPAY ==
[2025-02-03 08:33] LABS: Hematocrit 43.9 % (37.0-47.0); Hemoglobin 14.5 g/dL (12.0-15.0); Immature Granulocyte Percent A 0.4 % (0-0.5); Lymphocytes Absolute Auto 2.77 K/mm3 (0.9-3.2); Mean Corpuscular HGB Conc 33.0 g/dl (32-36); Mean Corpuscular Hemoglobin 28.2 pg (26-34); Mean Corpuscular Volume 85.4 fl (80-100); Nucleated Red Blood Cells Absolute Auto 0.000 K/mm3 (0.0-0.012); Nucleated Red Blood Cells Perc 0.0 % (0.0-0.2); Platelet Count Result 320 k/mm3 (150-375); Red Blood Count 5.14 M/mm3 (4.2-5.4); White Blood Count 8.5 K/mm3 (4.5-10.0)
[2025-02-03 08:45] LABS: Alanine Aminotransferase 43 U/L (6-35); Albumin Level 4.2 g/dL (3.5-5.1); Alkaline Phosphatase 83 U/L (38-126); Anion Gap 4 mmol/L (4-12); Aspartate Amino Transferase 38 U/L (14-36); Bilirubin,Total 0.9 mg/dL (0.2-1.3); Blood Urea Nitrogen 14 mg/dL (7-17); Calcium 9.1 mg/dL (8.4-10.2); Carbon Dioxide 26 mmol/L (22-30); Chloride 106 mmol/L (98-107); Estimated Glomerular Filt Rate > 60; Glucose 120 mg/dL (65-110); Potassium 4.0 mmol/L (3.4-5.0); Sodium 136 mmol/L (137-145); Total Protein 7.5 g/dL (6.3-8.2)
[2025-02-03 08:47] LABS: Hemoglobin A1C 6.2 % (<5.7)
== END 2025-02-03 08:05 | disposition home or self-care (01) ==
LOC: ANHLAB 08:08
PROVIDERS: PCP Physician Assistant; Visit Provider Physician Assistant
DX: R73.03 Prediabetes (principal); E66.813 Obesity, class 3; Z79.899 Other long term (current) drug therapy; R74.8 Abnormal levels of other serum enzymes
CPT/HCPCS: 36415; 80053; 83036; 83525; 85025